=== PATIENT | female | born 1990 | race Caucasian/White ===

== ENCOUNTER 2024-09-07 10:25 | Emergency (ER) | payer MEDICAID, SELFPAY ==
--- NOTE | ~2024-09-07 | US_ITS ---
EXAMINATION: US LOWER EXTREMITY VEINS BILATERAL HISTORY: LE edema, pitting COMPARISON: There are no prior studies for comparison. TECHNIQUE: Duplex and color Doppler sonographic examination of the deep venous system of the bilateral lower extremities was performed. FINDINGS: The right common femoral, superficial femoral, and popliteal veins are patent demonstrating normal compressibility, spontaneous flow, and augmentation. There is a normal color and spectral Doppler waveform appearance of the visualized deep venous system above the knee. The posterior tibial and peroneal veins are patent. The left common femoral, superficial femoral, and popliteal veins are patent demonstrating normal compressibility, spontaneous flow, and augmentation. There is a normal color and spectral Doppler waveform appearance of the visualized deep venous system above the knee. The posterior tibial and peroneal veins are patent. US/US venous duplex LE BI IMPRESSION: No evidence of acute DVT in the bilateral lower extremities. Electronically signed by: Leonides Villa MD 09/07/2024 01:15 PM EDT
--- NOTE | ~2024-09-07 | XR_ITS ---
EXAMINATION: XR CHEST CLINICAL INFORMATION: exertional dyspnea COMPARISON: None available. TECHNIQUE: 2 views of the chest were obtained. FINDINGS: Faint wedge-shaped opacities in the right middle lung lobe and lingula best seen on the lateral projection. No gross pleural effusion or pneumothorax. Cardiomediastinal silhouette size is normal. S-shaped curvature of the thoracic spine. XR/XR chest 2V IMPRESSION: Questionable airspace disease in the right middle lung lobe and lingula versus summation of breast tissue Electronically signed by: Deo Carpenter MD 09/07/2024 12:12 PM EDT
[2024-09-07 10:26] VITALS: BP 123/69; PULSE 89; RESP 18; TEMP 36.3; O2SAT 94; BMI 34.3
--- NOTE | 2024-09-07 10:29 | ED.GENADULT ---
HPI - General Adult General Chief complaint: General Medical Stated complaint: pain in both legs Time Seen by Provider: 09/07/24 11:14 Source: patient, RN notes reviewed and old records reviewed Mode of arrival: ambulatory History of Present Illness ED Provider: Katrina Gary PA-C HPI narrative: 34-year-old female with a past medical history substance abuse currently on Methadone, presenting to the ED complaining of bilateral LE edema and discomfort x few weeks. Also states her psychiatrist Center to ED for EKG however she is unclear why. Admits she recently started methadone about 2 weeks ago, however states leg swelling started prior to methadone initiation. Reports associated calf shocking feeling and some exertional dyspnea. Denies chest pain, recent travel, long car rides or plane rides, history of clots, oral OCPs. Does smoke cigarettes. Related Data Previous Rx's ?Medication ?Instructions ?Recorded doxycycline hyclate 100 mg tablet 100 mg PO BID 7 days #14 tabs 09/07/24 furosemide 20 mg tablet (Lasix) 20 mg PO DAILY 5 days #5 tabs 09/07/24 Allergies Allergy/AdvReac Type Severity Reaction Status Date / Time No Known Allergies Allergy Verified 09/07/24 10:30 Review of Systems Review of Systems: Yes all other systems are reviewed and are negative Constitutional: Constitutional: Reports as per [facility] Past Medical History Attestation statement: The following information was validated with the patient. Source: old records reviewed Social History Social History Advance Directives: No Advance Directives Information Provided: Yes Do you have a plan to hurt others: No Plan Physical Exam ED Vital Signs: Vital Signs - 24 hr 09/07/24 10:26 Temperature 97.3 F Pulse Rate 89 Respiratory Rate 18 Blood Pressure 123/69 Pulse Oximetry 94 Oxygen Delivery Method Room Air BMI result Body Mass Index 34.3 Const Other: Appears under the influence General: cooperative and no acute distress Orientation/consciousness: patient oriented x3 HENMT Head: Yes normal to inspection and Yes atraumatic Ears: hearing grossly normal bilaterally General nose exam: Normal external nose present Face and sinus: Yes normal facial exam Eyes General: appearance normal, both eyes and all related structures EOM: EOMs intact bilaterally Neck Neck: Yes normal visual inspection and Yes no meningeal signs Resp Effort & Inspection: normal respiratory effort and no respiratory distress Auscultation: clear to auscultation bilaterally, no crackles and no wheezes Cardio Rate: regular rate Heart sounds: S1 normal heart sound present and S2 normal heart sound present Peripheral pulses: Peripheral pulses 2+ throughout Skin Rashes: no rashes Wounds: no wounds Neuro General: patient oriented x3, tone normal and no meningeal signs Cranial nerves: Yes CN's II-XII intact bilaterally Gait exam (Neuro): Normal gait present Extrem Other: 2+ bilateral LE pitting edema. Mild calf tenderness. Neurovascularly intact distally. No crepitus. Course Course Course Narrative: This is a rapid medical exam performed by Gagan Faye NP: Additional HPI, ROS, PE not included below will be deferred to primary provider. 09/07/24 10:30 Patient is a 34-year-old female presenting with complaint of bilateral lower extremity swelling and shock-like pain for the past week. States her psychiatrist referred her for an EKG but she does not know why and did not have it done yet. Plan: EKG, labs -1157-- labs reassuring. D-dimer negative, DVT/ PE less likely - QT prolonged, QTc 517 > will consult addiction medicine, Amber Reed > recommended repeating EKG later today or tomorrow. >> Repeat EKG with prolonged QT, but slightly improved from prior, QTc 500 > EKG sent to patient's methadone clinic ([address]) by Addiction Medicine so they are aware & can monitor. - UA with leuk esterase and wbc's /blood however contaminated > will wait on initiating antibiotics until culture results XR chest 2V IMPRESSION: Questionable airspace disease in the right middle lung lobe and lingula versus summation of breast tissue > will treat patient empirically with doxycycline due to questionable UTI / pneumonia. Avoiding azithromycin due to prolonged QT US venous duplex LE BI IMPRESSION: No evidence of acute DVT in the bilateral lower extremities. Discussed with patient need of compression stockings and leg elevation. Discussed importance of QTC monitoring. - upon attempted discharge patient states she was being treated for Trichomonas however stopped antibiotics fdc through and then continued them and would like to be re-tested. Will self swab. Will wait on culture prior to treating as she partially completed treatment Results discussed with patient including worrisome signs and symptoms and strict return precautions, and when to return to the emergency department. They verbalized understanding and feel safe for discharge at this time. Medical Decision Making Medical Decision Making [facility] Narrative: 34-year-old female with a past medical history substance abuse currently on Methadone, presenting to the ED complaining of bilateral LE edema and discomfort x few weeks. Reports associated calf shocking feeling and some exertional dyspnea. On exam vital signs stable, NAD, nontoxic appearing, 2+ bilateral LE pitting edema noted with bilateral calf tenderness. Lungs CTA. Concern for CHF vs dependent edema vs ? DVT/PE. Rule out prolonged QT secondary to methadone use. Lower suspicion for ACS Plan: EKG, labs, venous duplex ultrasound, CXR Please refer to course for remaining clinical decision making, interpretation of labs/imaging results, and discussions with consultants and/or family members. Differential Diagnosis Differential Diagnoses: The differential diagnosis associated with the presentation includes As above Admission/Observation Consideration of admission/observation: Escalation of care including admission/observation considered Consult Healthcare Provider Management of the patient was discussed with: Loom Changeover Operator (Amber Reed) Lab Data [facility] Lab Attestation statement: I reviewed the patient's lab results. 09/07/24 10:49 09/07/24 10:48 Labs: Lab Results 09/07/24 09/07/24 09/07/24 Range/Units 10:48 10:49 12:09 WBC 6.6 (4.8-10.8) X10*3/uL RBC 3.90 L (4.20-5.50) X10*6/uL Hgb 10.9 L (12.0-16.0) g/dl Hct 33.1 L (37.0-47.0) % MCV 84.9 (80.0-98.0) fL MCH 27.9 (27.0-33.0) pg MCHC 32.9 (31.0-35.0) g/dl RDW 13.7 (11.0-16.0) % Plt Count 262 (160-400) X10*3/uL MPV 9.1 L (9.4-12.3) fL Immature Gran % (Auto) 0.3 (0.0-0.4) % Neut % (Auto) 61.9 (45-73) % Lymph % (Auto) 25.0 (20-40) % Mitchell % (Auto) 10.9 (2-11) % Eos % (Auto) 1.4 (0-4) % Baso % (Auto) 0.5 (0-2) % Lymph # (Auto) 1.7 (1.2-4.9) X10*3/uL Mitchell # (Auto) 0.7 (0.1-1.2) X10*3/uL Eos # (Auto) 0.1 (0.0-0.4) X10*3/uL Baso # (Auto) 0.0 (0.0-0.2) X10*3/uL Abs Immat Gran (auto) 0.02 (0.00-0.03) X10*3/uL Absolute Neuts (auto) 4.1 (2.0-8.3) x10*3/uL Absolute Nucleated RBC 0.000 (0.0-0.012) X10*3/uL Nucleated RBC % (auto) 0.0 (0.0-0.2) /100WBC D-Dimer High Sensitivty NG/ML Sodium 140 (135-145) mmol/L Potassium 3.9 (3.3-5.1) mmol/L Chloride 108 (96-108) mmol/L Carbon Dioxide 27 (22-29) mmol/L Anion Gap 9 L (12-20) BUN 3 L (9-16) mg/dL Creatinine 0.57 (0.5-1.4) mg/dL Estim Creat Clear Calc 139.3 Estimated GFR > 60 Random Glucose 97 (60-115) mg/dL Calcium 8.6 (8.4-10.2) mg/dL Magnesium 1.9 (1.6-2.6) mg/dL Total Bilirubin 0.3 (0.0-1.0) mg/dL AST 39 H (5-31) U/L ALT 26 (0-31) U/L Alkaline Phosphatase 60 (39-117) U/L Troponin I High Sens < 2.7 (<3.5-17.0) ng/L B-Natriuretic Peptide 38 (<100) pg/mL Total Protein 6.4 L (6.5-8.0) g/dL Albumin 3.6 (3.5-5.0) g/dL Urine Color Yellow Urine Appearance Clear Urine pH 8.0 (5.0-9.0) Ur Specific [place] 1.010 (1.005-1.025) Urine Protein Negative (Neg-Trace) mg/dL Urine Glucose (UA) Negative (Negative) mg/dL Urine Ketones Negative (Negative) mg/dL Urine Blood Large (3+) H (Negative) Urine Nitrite Negative (Negative) Ur Leukocyte Esterase Moderate (2+) H (Negative) Urine RBC 0-2 (0-2) /HPF Urine WBC 6-10 H (0-5) /HPF Ur Squamous Epith Cells 6-10 (0-2) /HPF Urine Bacteria 1+ (None Seen) Hyaline Casts 0-2 (0-2) /LPF 09/07/24 Range/Units 12:15 WBC (4.8-10.8) X10*3/uL RBC (4.20-5.50) X10*6/uL Hgb (12.0-16.0) g/dl Hct (37.0-47.0) % MCV (80.0-98.0) fL MCH (27.0-33.0) pg MCHC (31.0-35.0) g/dl RDW (11.0-16.0) % Plt Count (160-400) X10*3/uL MPV (9.4-12.3) fL Immature Gran % (Auto) (0.0-0.4) % Neut % (Auto) (45-73) % Lymph % (Auto) (20-40) % Mitchell % (Auto) (2-11) % Eos % (Auto) (0-4) % Baso % (Auto) (0-2) % Lymph # (Auto) (1.2-4.9) X10*3/uL Mitchell # (Auto) (0.1-1.2) X10*3/uL Eos # (Auto) (0.0-0.4) X10*3/uL Baso # (Auto) (0.0-0.2) X10*3/uL Abs Immat Gran (auto) (0.00-0.03) X10*3/uL Absolute Neuts (auto) (2.0-8.3) x10*3/uL Absolute Nucleated RBC (0.0-0.012) X10*3/uL Nucleated RBC % (auto) (0.0-0.2) /100WBC D-Dimer High Sensitivty 181 NG/ML Sodium (135-145) mmol/L Potassium (3.3-5.1) mmol/L Chloride (96-108) mmol/L Carbon Dioxide (22-29) mmol/L Anion Gap (12-20) BUN (9-16) mg/dL Creatinine (0.5-1.4) mg/dL Estim Creat Clear Calc Estimated GFR Random Glucose (60-115) mg/dL Calcium (8.4-10.2) mg/dL Magnesium (1.6-2.6) mg/dL Total Bilirubin (0.0-1.0) mg/dL AST (5-31) U/L ALT (0-31) U/L Alkaline Phosphatase (39-117) U/L Troponin I High Sens (<3.5-17.0) ng/L B-Natriuretic Peptide (<100) pg/mL Total Protein (6.5-8.0) g/dL Albumin (3.5-5.0) g/dL Urine Color Urine Appearance Urine pH (5.0-9.0) Ur Specific [place] (1.005-1.025) Urine Protein (Neg-Trace) mg/dL Urine Glucose (UA) (Negative) mg/dL Urine Ketones (Negative) mg/dL Urine Blood (Negative) Urine Nitrite (Negative) Ur Leukocyte Esterase (Negative) Urine RBC (0-2) /HPF Urine WBC (0-5) /HPF Ur Squamous Epith Cells (0-2) /HPF Urine Bacteria (None Seen) Hyaline Casts (0-2) /LPF Independent Interpretation I performed an independent interpretation of an: EKG ( my interpretation EKG normal sinus rhythm rate of 83. [place] interval 172. Prolonged QT. QTc 517. No previous to compare. No STEMI) and Plain X-Ray Interpretation: EKG #2 repeat EKG normal sinus rhythm rate of 73. Prolonged QT. QTC 500, slightly improved from prior. No significant change was found. Radiology Impression Discussion of test interpretation with radiology: I have reviewed the radiologist's reading. External Record Review External record reviewed: Inpatient record, Office record, Outpatient record, Prior outpatient labs, Prior outpatient radiology, Primary care record and Outside ED record Tests considered The following testing was considered but not selected: As above Chronic Conditions Patient?s care impacted by: Other Social Determinants Patient?s care significantly limited by Social Determinants of Health including: Inadequate housing, Low income, Alcoholism and drug addiction in family, Problems related to primary support group and Other Social Determinant of Health Discharge Plan Discharge Clinical Impression: Prolonged QT interval, Pedal edema Patient Disposition: Home, Self-Care Instructions: Methadone (By mouth), Edema (ED) Additional Instructions: Your blood work is reassuring Your ultrasound was negative for blood clot Your x-ray and urine are questionable for infection and pneumonia. Doxycycline as an antibiotic please take as prescribed Lasix is a water pill/ diuretic this will help with the swelling in your legs You need to wear compression stockings and elevate your legs Follow up with her primary care doctor Your QTc was prolonged gated today in the emergency department likely a side effect from your methadone, your methadone clinic is aware, this needs to be monitored very closely Prescriptions: New doxycycline hyclate 100 mg tablet 100 mg PO BID 7 Days Qty: 14 0RF furosemide [Lasix] 20 mg tablet 20 mg PO DAILY 5 Days Qty: 5 0RF Referrals: [facility] [Provider Group] [facility] Primary Care, Dagmar [Provider Group] [facility] Primary Care,Amanda [Provider Group] [facility] Walk In Care [Provider Group] [facility] [Outside] Stand Alone Forms: Work/School Release Print Language: Swazi
--- NOTE | 2024-09-07 10:31 | ECG_ITS ---
Test Reason : PAIN W/ BREATHING Blood Pressure : */* mmHG Vent. Rate : 83 BPM Atrial Rate : 83 BPM P-R Int : 172 ms QRS Dur : 92 ms QT Int : 440 ms P-R-T Axes : 55 53 59 degrees QTcB Int : 517 ms Normal sinus rhythm Prolonged QT Abnormal ECG No previous ECGs available Referred By: Mercy Faye Electronically Signed By: STEPHANIE UREÑA
[2024-09-07 10:53] LABS: MANUAL DIFF FLAG NO
[2024-09-07 10:57] LABS: Basophils Percent Auto 0.5 % (0-2); Eosinophils Absolute Auto 0.1 X10*3/uL (0.0-0.4); Eosinophils Percent Auto 1.4 % (0-4); Hematocrit 33.1 % (37.0-47.0); Hemoglobin 10.9 g/dl (12.0-16.0); Imm Gran Abs Auto 0.02 X10*3/uL (0.00-0.03); Imm Gran Pct Auto 0.3 % (0.0-0.4); Lymphocytes Absolute Auto 1.7 X10*3/uL (1.2-4.9); Mean Corpuscular HGB Conc 32.9 g/dl (31.0-35.0); Mean Corpuscular Hemoglobin 27.9 pg (27.0-33.0); Mean Corpuscular Volume 84.9 fL (80.0-98.0); Mean Platelet Volume 9.1 fL (9.4-12.3); Monocytes Absolute Auto 0.7 X10*3/uL (0.1-1.2); Monocytes Percent Auto 10.9 % (2-11); Neutrophils Absolute Auto 4.1 x10*3/uL (2.0-8.3); Neutrophils Percent Auto 61.9 % (45-73); Platelet Count 262 X10*3/uL (160-400); Red Cell Distribution Width 13.7 % (11.0-16.0); White Blood Count 6.6 X10*3/uL (4.8-10.8)
[2024-09-07 11:21] LABS: Alanine Aminotransferase 26 U/L (0-31); Albumin Level 3.6 g/dL (3.5-5.0); Alkaline Phosphatase 60 U/L (39-117); Anion Gap 9 (12-20); Aspartate Amino Transferase 39 U/L (5-31); Bilirubin Total 0.3 mg/dL (0.0-1.0); Blood Urea Nitrogen 3 mg/dL (9-16); Calcium 8.6 mg/dL (8.4-10.2); Carbon Dioxide 27 mmol/L (22-29); Chloride 108 mmol/L (96-108); Creatinine Clr Calc Pharmacy 139.3; Estimated Glomerular Filt Rate > 60; Glucose Random 97 mg/dL (60-115); Potassium 3.9 mmol/L (3.3-5.1); Sodium 140 mmol/L (135-145); Total Protein 6.4 g/dL (6.5-8.0)
[2024-09-07 12:04] LABS: Magnesium 1.9 mg/dL (1.6-2.6)
[2024-09-07 12:12] LABS: Troponin-I High Sensitivity < 2.7 ng/L (<3.5-17.0)
[2024-09-07 12:16] LABS: Appearance Urine Clear; Color Urine Yellow; Glucose Urine UA Negative (Negative); Leukocyte Esterase Urine Moderate (2+) (Negative); Nitrite Urine Negative (Negative); UMIC TRIGGER UACC YES; Urine Blood Large (3+) (Negative); Urine Ketones Negative (Negative); Urine Protein Negative (Neg-Trace)
[2024-09-07 12:17] LABS: B Type Natriuretic Peptide 38 pg/mL (<100)
[2024-09-07 12:24] LABS: Bacteria Urine 1+ (None Seen); Hyaline Casts Urine 0-2 /LPF (0-2); RBC Urine 0-2 /HPF (0-2); UACC Culture Trigger YES
[2024-09-07 12:29] LABS: D Dimer High Sensitivity 181 NG/ML
--- OUTSIDE RECORDS SUMMARY | 2024-09-07 12:29 | XMS_ITS | Clinical Summary ---
Author Organization [facility] Address [address] [place] [address] Care Team Providers Care Street Cleaner Name Role Phone Unavailable Primary Care Provider Unavailabl e Source Comments PLEASE NOTE, if this patient is a minor, it may be UNLAWFUL to discuss sensitive information that is contained in these records (such as FAMILY PLANNING, MENTAL HEALTH or SUBSTANCE ABUSE) with the minor patient's parent or other person without the patient's specific authorization.[facility] Medications hydrOXYzine HCL (ATARAX) 50 mg tabletIndications:B ipolar 1 disorder ([facility]) Take 1 Tablet by mouth 3 (three) times daily as needed for anxiety for up to 30 days 90 Tablet 5 Active FLUoxetine 60 mg tabIndications:Bipo lar 1 disorder (HCC-CMS) Take 1 Tablet by mouth daily. for 30 days 30 Tablet 5 Active OLANZapine (ZYPREXA) 10 mg disintegrating tabletIndications:B ipolar 1 disorder (HCC-CMS) Take 1 Tablet by mouth nightly at bedtime for 30 days 30 Tablet 5 Active Active Problems Problem Noted Date Diagnosed Date Bipolar 1 disorder (HCC-CMS) 07/21/2024 Overview (07/21/2024): Not currently followed by psych. Hoping to go back to [facility] in a few weeks. Assessment & Plan (07/21/2024 4:21 PM EST): -renewed scripts -offered in house psych, pt declined Depression 07/21/2024 Substance use disorder 07/21/2024 Overview (07/21/2024): Moved from for SUP. Asked to leave. Hoping she can go back soon. Not currently using. Assessment & Plan (07/21/2024 4:25 PM EST): Awaiting Trey oconnell. -informed pt could be connected to other resources, verbilizes understanding and will reach out if interested. -discuss in more detail at next visit Unprotected sexual intercourse 07/21/2024 Overview (07/21/2024): 2 days ago. No RF sx Assessment & Plan (07/21/2024 4:24 PM EST): History reassuring -sureswab sent -condoms provided -RTC in 2-4 weeks for blood testing for HIV/syphillis/hep immunity testing Elevated blood pressure read ing in office without diagnosis of hypertension 07/21/2024 Assessment & Plan (07/21/2024 4:28 PM EST): No PMH HTN. -RTC for recheck in 1 week Encounters Date Type Department Care Team Description 07/25/2024 8:30 AM EST Case Management Visit [facility] @ [address] [phone] Elisa Romero Classified Ad Taker Complex care coordination (Primary Dx) 07/21/2024 2:30 PM EST Office Visit [address] [phone] Telma Flores NP Depression, unspecified depression type (Primary Dx); Bipolar 1 disorder ([facility]); Substance use disorder; Unprotected sexual intercourse; Elevated blood pressure reading in office without diagnosis of hypertension from Last 3 Months Social History Tobacco Use Types Packs/Day Years Used Date Smoking Tobacco: Never Assessed Comments Unknown Sex and Gender Information Value Date Recorded Sex Assigned at Not on file Legal Sex Female 10:46 AM PST Gender Identity Not on file Sexual Orientation Not on file Last Filed Vital Signs Vital Sign Reading Time Taken Comments Blood Pressure 147/88 07/21/2024 4:26 PM EST Pulse 101 07/21/2024 4:26 PM EST Temperature - - Respiratory Rate 18 07/21/2024 4:26 PM EST Oxygen Saturation 98% 07/21/2024 4:26 PM EST Inhaled Oxygen Concentration - - Weight - - Height - - Body Mass Index - - Plan of Treatment Health Maintenance Due Date Last Done Comments Anxiety Screening 1989 Depression Monitoring 1989 Diabetes Screening 1989 HPV Screening 1989 Hepatitis C Screening 1989 LTBI Screening (#1) 1989 Pap + HPV 1989 STI Counseling 1989 Tobacco Screening 1989 HIV Screening 2004 Relationship Safety Screening/Counseling 2004 Imm-DTaP/Tdap/Td (1 - Tdap) 2008 Imm-Hepatitis A (1 of 2 - Risk 2-dose series) 07/23/19 09 Imm-Hepatitis B (1 of 3 - 19+ 3-dose series) 9 Cervical Cancer Screening 2010 Pap Smear 2010 [id number] ( season) 2024 Imm-Influenza (#1) 2024 Alcohol and Drug Screen 06/07/2024 Hypertension Screening (#1) 07/21/2025 Cervical Ablation/Cold-Knife Conization Discontinued Cervical Cryotherapy Discontinued Colposcopy Discontinued Endometrial Biopsy Discontinued Excision/Leep Discontinued HPV Genotyping Discontinued Vaginal Pap Discontinued Vulvoscopy Discontinued Procedures Procedure Name Priority Date/Time Associated Diagnosis Comments SURESWAB ADVANCED VAGINITIS PLUS, TMA Routine 07/21/2024 3:57 PM EST Unprotected sexual intercourse from Last 3 Months Results * (ABNORMAL) SURESWAB ADVANCED VAGINITIS PLUS, TMA (07/21/2024 3:57 PM EST) CHLAMYDIA TRACHOMATIS RNA, TMA NOT DETECTED NOT DETECTED [facility] NEISSERIA GONORRHOEAE RNA, TMA NOT DETECTED NOT DETECTED [facility] COMMENT [facility] SURESWAB(R) ADV BACTERIAL VAGINOSIS (BV), TMA POSITIVE(A) NEGATIVE [facility] BEVERLY SPECIES NOT DETECTED NOT DETECTED [facility] [place] GLABRATA NOT DETECTED NOT DETECTED [facility] COMMENT [facility] TRICHOMONAS VAGINALIS (TV), TMA DETECTED(A) NOT DETECTED [facility] Swab Vaginal structure / Unknown 07/21/2024 3:57 PM EST 07/21/2024 3:58 PM EST Narrative [facility] - 07/22/2024 3:26 PM EST Beverly species C. albicans, C. tropicalis, C. parapsilosis, and/or C. dubliniensis can be detected, but not differentiated, in the Beverly spp. result. For additional information, please refer to https://education.Insurance Noodle/faq/JAZ620 (This link is being provided for information/ educational purposes only.) us Telam Flores NP LAB - NO BLOOD D RAW Final Result [facility] [address] [address], [facility] [address] [place] [address] from Last 3 Months Insurance [facility] Member Subscriber Plan / Payer ( fective 2024-Present) Name:Adore Messer Relation to Subscriber:Self Name:Adore Messer Payer ID:[id number] Group ID:Not on file Type:Medicaid Address: [address] [place] [address] [facility] MED[facility]ID
--- OUTSIDE RECORDS SUMMARY | 2024-09-07 12:29 | XMS_ITS | Encounter Summary ---
Author Organization [employer] Address [address] [place] [address] Care Team Providers Care Batter Scaler Name Role Phone Physician, Pcp Unknown Primary Care Provider Miranda vailable Encounter Details Date Type Department Care Team (Late st Contact Info) Description 08/29/[address] [facility] - Main Lab [address] [facility] [place] [address] Telma Carey MD [address] [place] [address] Opioid dependence, uncomplicated (CMS/HCC) Social History Tobacco Use Types Packs/Day Years Used Date Smoking Tobacco: Never Assessed Comments Unknown Sex and Gender Information Value Date Recorded Sex Assigned at Not on file Legal Sex Female 2:56 PM EDT Gender Identity Not on file Sexual Orientation Not on file documented as of this encounter Plan of Treatment Not on file documented as of this encounter Procedures Procedure Name Priority Date/Time Associated Diagnosis Comments HEPATITIS C ANTIBODY Routine 08/29/2024 9:45 AM EDT Opioid dependence, uncomplicated (CMS/HCC) HIV 1, 2 ANTIBODY, P24 ANTIGEN WITH REFLEX TO DIFFERENTIATION Routine 08/29/2024 9:45 AM EDT Opioid dependence, uncomplicated (CMS/HCC) WHITE - NO ADDITIVE Routine 08/29/2024 9 :45 AM EDT Opioid dependence, uncomplicated (CMS/HCC) HEPATITIS B SURFACE ANTIGEN WITH CONFIRMATION Routine 08/29/2024 9:45 AM EDT Opioid dependence, uncomplicated (CMS/HCC) AST, ALT, BILIRUBIN ELR STATE REPORTABLES Routine 08/29/2024 9:45 AM EDT Opioid dependence, uncomplicated (CMS/HCC) TREPONEMA PALLIDUM ANTIBODY WITH REFLEX TO RPR AND PARTICLE AGGLUTINATION Routine 08/29/2024 9:45 AM EDT Opioid dependence, uncomplicated (CMS/HCC) HEPATITIS A ANTIBODY TOTAL WITH REFLEX IGM Routine 08/29/2024 9:45 AM EDT Opioid dependence, uncomplicated (CMS/HCC) RED - PLAIN Routine 08/29/2024 9:45 AM EDT Opioid dependence, uncomplicated (CMS/HCC) HEPATITIS A ANTIBODY IGM Routine 08/29/2024 9:45 AM EDT Opioid dependence, uncomplicated (CMS/HCC) HEPATITIS B CORE ANTIBODY, TOTAL Routine 08/29/2024 9:45 AM EDT Opioid dependence, uncomplicated (CMS/HCC) HEPATITIS B SURFACE ANTIBODY Routine 08/29/2024 9:45 AM EDT Opioid dependence, uncomplicated (CMS/HCC) COMPLETE BLOOD COUNT Routine 08/29/2024 9:45 AM EDT Opioid dependence, uncomplicated (CMS/HCC) COMPREHENSIVE METABOLIC PANEL Routine 08/29/2024 9:45 AM EDT Opioid dependence, uncomplicated (CMS/HCC) documented in this encounter Results * AST, ALT, Bilirubin ELR state reportables (08/29/2024 9:45 AM EDT) ALT (SGPT) 24 10 - 60 unit/L LAB CHEMISTRY METHOD 08/29/2024 7:03 PM EDT [facility] AST (SGOT) 24 10 - 42 unit/L LAB CHEMISTRY METHOD 08/29/2024 7:03 PM EDT [facility] Total Bilirubin 0.4 0.0 - 1.4 mg/dL LAB CHEMISTRY METHOD 08/29/2024 7:03 PM EDT [facility] Platelets 297 K/mcL LAB HEMETOLOGY METHOD 08/29/2024 7:03 PM EDT [facility] Blood Venous blood specimen / Unknown 08/29/2024 9:45 AM EDT 08/29/2024 3:21 PM EDT Telma Carey MD LAB BLOOD ORDERABLES Fi nal Result Performing Organization Address [facility] de Phone Number [facility] [address] [place] [address], [place] [phone] * Hepatitis A antibody IgM (08/29/2024 9:45 AM EDT) Hepatitis A Antibody IgM Negative Negative LAB CHEMISTRY METHOD 08/29/2024 7:20 PM EDT [facility] Blood Venous blood specimen / Unknown 08/29/2024 9:45 AM EDT 08/29/2024 3:21 PM EDT Narrative [facility] - 08/29/2024 7:20 PM EDT Over the counter supplements containing high doses of biotin may interfere with this assay. ??If interference is suspected, patients shoud be retested after refraining from biotin supplements for 72 hours. Telma Carey MD LAB BLOOD ORDERABLES Fi nal Result Performing Organization Address [facility] de Phone Number [facility] [address] [place] [address], * Red tube (08/29/2024 9:45 AM EDT) Extra Tube Hold for add-ons. 08/29/2024 5:01 PM EDT [facility] Comment:Auto resulted. Blood Venous blood specimen / Unknown 08/29/2024 9:45 AM EDT 08/29/2024 3:26 PM EDT Telma Carey MD LAB BLOOD ORDERABLES Fi nal Result Performing Organization Address [facility] Co de Phone Number [facility] [address] [place] [address], * Hepatitis B core antibody, total (08/29/2024 9:45 AM EDT) [facility] Hep B Core Total Ab Negative Negative LAB CHEMISTRY METHOD 08/29/2024 6:05 PM EDT [facility] Blood Venous blood specimen / Unknown 08/29/2024 9:45 AM EDT 08/29/2024 3:21 PM EDT Telma Carey MD LAB BLOOD ORDERABLES Fi nal Result Performing Organization Address [facility] Co de Phone Number [facility] [address] [place] [address], * White no additive tube (08/29/2024 9:45 AM EDT) [facility] Extra Tube Hold for add-ons. 08/29/2024 5:01 PM EDT [facility] Comment:Auto resulted. Urine Urine specimen obtained by clean catch procedure / Unknown 08/29/2024 9:45 AM EDT 08/29/2024 3:21 PM EDT Telma Carey MD LAB MICROBIOLOGY - GENE RAL ORDERABLES Final Result Performing Organization Address [facility] Co de Phone Number [facility] [address] [place] [address], [place] [phone] * (ABNORMAL) Hepatitis A antibody total with reflex IgM (08/29/2024 9:45 AM EDT) [facility] Hep A Total Ab Positive( A) Negative LAB CHEMISTRY METHOD 08/29/2024 6:04 PM EDT [facility] Blood Venous blood specimen / Unknown 08/29/2024 9:45 AM EDT 08/29/2024 3:21 PM EDT Narrative [facility] - 08/29/2024 6:04 PM EDT Over the counter supplements containing high doses of biotin may interfere with this assay. ??If interference is suspected, patients shoud be retested after refraining from biotin supplements for 72 hours. Telma Carey MD LAB BLOOD ORDERABLES Fi nal Result Performing Organization Address [facility] de Phone Number [facility] [address] [place] [address], [place] [phone] * (ABNORMAL) Hepatitis C antibody (08/29/2024 9:45 AM EDT) Pathologist [facility] Hepatitis C Antibody Positive (A) Negative LAB CHEMISTRY METHOD 08/29/2024 6:04 PM EDT [facility] Comment:If confirmation of t his positive HCV Ab screening test is needed, please redraw and order HCV Viral Load. Note--> This test may not be added on due to different specimen requirements. Blood Venous blood specimen / Unknown 08/29/2024 9:45 AM EDT 08/29/2024 3:21 PM EDT Telma Carey MD LAB BLOOD ORDERABLES Fi nal Result Performing Organization Address [facility] Co de Phone Number [facility] [address] [place] [address], [place] [phone] * (ABNORMAL) Hepatitis B surface antibody (08/29/2024 9:45 AM EDT) Pathologist [facility] Hepatitis B Surface Ab Positive (A) Negative LAB CHEMISTRY METHOD 08/29/2024 5:26 PM EDT [facility] Hepatitis B Surface Ab Quantitative >1,000.0 mIU/mL LAB CHEMISTRY METHOD 08/29/2024 5:26 PM EDT [facility] Blood Venous blood specimen / Unknown 08/29/2024 9:45 AM EDT 08/29/2024 3:[address] [facility] - 08/29/2024 5:26 PM EDT >=10 mIU/mL is considered to be consistent with immunity. Telma Carey MD LAB BLOOD ORDERABLES Fi nal Result Performing Organization Address [facility] Co de Phone Number [facility] [address] [place] [address], * Hepatitis B surface antigen with reflex to confirmation (08/29/2024 9:45 AM EDT) Pathologist [facility] Hepatitis B Surface Ag Negative Negative LAB CHEMISTRY METHOD 08/29/2024 5:36 PM EDT [facility] Blood Venous blood specimen / Unknown 08/29/2024 9:45 AM EDT 08/29/2024 3:[address] [facility] - 08/29/2024 5:36 PM EDT Over the counter supplements containing high doses of biotin may interfere with this assay. ??If interference is suspected, patients shoud be retested after refraining from biotin supplements for 72 hours. Telma Carey MD LAB BLOOD ORDERABLES Fi nal Result Performing Organization Address [facility]/ZIP Co de Phone Number [facility] [address] [place] [address], [place] [phone] * HIV 1,2 antibody, p24 antigen with reflex to differentiation (08/29/2024 9:45 AM EDT) Pathologist [facility] HIV Combo AB/AG Negative Negative LAB CHEMISTRY METHOD 08/29/2024 6:05 PM EDT [facility] Blood Venous blood specimen / Unknown 08/29/2024 9:45 AM EDT 08/29/2024 3:21 PM EDT Narrative [facility] - 08/29/2024 6:05 PM EDT This assay is a 4th generation assay allowing for earlier detection of HIV infection by detecting the presence of the HIV-1 p24 antigen as well as the traditional antibodies to HIV type 1 (including group O) and type 2. ??Use of a 4th generation assay is the current CDC recommendation for HIV screening. Telma Carey MD LAB BLOOD ORDERABLES Fi nal Result Performing Organization Address [facility] Co de Phone Number [facility] [address] [place] [address], [place] [phone] * Treponema pallidum antibody with reflex to RPR and particle agglutination (08/29/2024 9:45 AM EDT) Pathologist [facility] T. Pallidum Antibodies Negative Negative LAB CHEMISTRY METHOD 08/29/2024 8:07 PM EDT [facility] Blood Venous blood specimen / Unknown 08/29/2024 9:45 AM EDT 08/29/2024 3:21 PM EDT Telma Carey MD LAB BLOOD ORDERABLES Fi nal Result Performing Organization Address [facility] Co de Phone Number [facility] [address] [place] [address], [place] [phone] * (ABNORMAL) Comprehensive metabolic panel (08/29/2024 9:45 AM EDT) Sodium 138 133 - 145 mmol/L LAB CHEMISTRY METHOD 08/29/2024 4:22 PM EDT [facility] Potassium 4.2 3.5 - 5.5 mmol/L LAB CHEMISTRY METHOD 08/29/2024 4:22 PM EDT [facility] Chloride 104 96 - 110 mmol/L LAB CHEMISTRY METHOD 08/29/2024 4:22 PM EDT [facility] CO2 24 21 - 32 mmol/L LAB CHEMISTRY METHOD 08/29/2024 4:[address] [facility] Anion Gap 10 3 - 11 LAB CHEMISTRY METHOD 08/29/2024 4:[address] [facility] Glucose 117(H) 70 - 100 mg/dL LAB CHEMISTRY METHOD 08/29/2024 4:[address] [facility] BUN 7 5 - 25 mg/dL LAB CHEMISTRY METHOD 08/29/2024 4:[address] [facility] Creatinine 0.56 0.50 - 1.10 mg/dL LAB CHEMISTRY METHOD 08/29/2024 4:[address] [facility] eGFR 122 >=60 mL/min/1. 73m2 LAB CHEMISTRY METHOD 08/29/2024 4:[address] [facility] Comment:Calculation based on the??Chronic Kidney Disease Epidemiology Collaboration (CKD-EPI) equation refit??without adjustment for race. BUN/Creatinine Ratio 12.5 LAB CHEMISTRY METHOD 08/29/2024 4:[address] [facility] Calcium 9.0 8.5 - 10.5 mg/dL LAB CHEMISTRY METHOD 08/29/2024 4:[address] [facility] AST (SGOT) 24 10 - 42 unit/L LAB CHEMISTRY METHOD 08/29/2024 4:[address] [facility] ALT (SGPT) 24 10 - 60 unit/L LAB CHEMISTRY METHOD 08/29/2024 4:[address] [facility] Alkaline Phosphatase 84 42 - 121 unit/L LAB CHEMISTRY METHOD 08/29/2024 4:[address] [facility] Total Protein 6.8 6.0 - 8.0 g/dL LAB CHEMISTRY METHOD 08/29/2024 4:[address] [facility] Albumin 3.7 3.2 - 5.0 g/dL LAB CHEMISTRY METHOD 08/29/2024 4:[address] [facility] Total Bilirubin 0.4 0.0 - 1.4 mg/dL LAB CHEMISTRY METHOD 08/29/2024 4:22 PM EDT [facility] Blood Venous blood specimen / Unknown 08/29/2024 9:45 AM EDT 08/29/2024 3:21 PM EDT Telma Carey MD LAB BLOOD ORDERABLES Fi nal Result [facility] [address] [place] [address], [place] [phone] * Complete blood count (08/29/2024 9:45 AM EDT) WBC 8.2 4.8 - 10.8 K/mcL LAB HEMETOLOGY METHOD 08/29/2024 3:35 PM EDT [facility] RBC 4.10 3.80 - 4.80 M/mcL LAB HEMETOLOGY METHOD 08/29/2024 3:35 PM EDT [facility] Hemoglobin 11.7 11.5 - 16.0 g/dL LAB HEMETOLOGY METHOD 08/29/2024 3:35 PM EDT [facility] Hematocrit 35.3 35.0 - 47.0 % LAB HEMETOLOGY METHOD 08/29/2024 3:35 PM EDT [facility] MCV 85.3 79.0 - 98.0 FL LAB HEMETOLOGY METHOD 08/29/2024 3:35 PM EDT [facility] MCH 28.3 27.0 - 32.0 pcg LAB HEMETOLOGY METHOD 08/29/2024 3:35 PM EDT [facility] MCHC 33.1 32.0 - 37.0 g/dL LAB HEMETOLOGY METHOD 08/29/2024 3:35 PM EDT [facility] RDW 13.5 11.0 - 15.0 % LAB HEMETOLOGY METHOD 08/29/2024 3:35 PM EDT [facility] Platelets 297 130 - 400 K/mcL LAB HEMETOLOGY METHOD 08/29/2024 3:35 PM EDT [facility] MPV 10.8 7.0 - 11.0 FL LAB HEMETOLOGY METHOD 08/29/2024 3:35 PM EDT [facility] NRBC 0.0 <1.0 % LAB HEMETOLOGY METHOD 08/29/2024 3:35 PM EDT [facility] NRBC Absolute 0.00 <0.10 K/mcL LAB HEMETOLOGY METHOD 08/29/2024 3:35 PM EDT [facility] Blood Venous blood specimen / Unknown 08/29/2024 9:45 AM EDT 08/29/2024 3:21 PM EDT us Telma Carey MD LAB BLOOD ORDERABLES Fi nal Result [facility] [address] [place] [address], documented in this encounter Visit Diagnoses Diagnosis Opioid dependence, uncomplicated (CMS/HCC) documented in this encounter Care Teams Batter Scaler Relationship Specialty Start Date End Date Physician, Pcp Unknown PCP - General 08/30/24 documented as of this encounter
--- OUTSIDE RECORDS SUMMARY | 2024-09-07 12:29 | XMS_ITS | Encounter Summary ---
Author Organization [employer] Address [address] [place] [address] Care Team Providers Care Molder Punch Name Role Phone Physician, Pcp Unknown Primary Care Provider Miranda vailable Encounter Details Date Type Department Care Team (Late st Contact Info) Description 09/06/2024 Lab Requisition [facility] - Main Lab [address] [facility] [place] [address] Telma Carey MD [address] [place] [address] Opioid dependence, uncomplicated (CMS/HCC); Encounter for screening for infections with a predominantly sexual mode of transmission Social History Tobacco Use Types Packs/Day Years [...] Procedure Name Priority Date/Time Associated Diagnosis Comments SST - GOLD Routine 09/06/2024 7:30 AM EDT Opioid dependence, uncomplicated (CMS/HCC) Encounter for screening for infections with a predominantly sexual mode of transmission HEPATITIS C VIRUS QUANTITATIVE PCR Routine 09/06/2024 7:30 AM EDT Opioid dependence, uncomplicated (CMS/HCC) Encounter for screening for infections with a predominantly sexual mode of transmission LAVENDER - EDTA Routine 09/06/2024 7:30 AM EDT Opioid dependence, uncomplicated (CMS/HCC) Encounter for screening for infections with a predominantly sexual mode of transmission documented in this encounter Results * Lavender tube (09/06/2024 7:30 AM EDT) Extra Tube Hold for add-ons. 09/06/2024 4:02 PM EDT [facility] Comment:Auto resulted. Blood Venous blood specimen / Unknown 09/06/2024 7:30 AM EDT 09/06/2024 2:52 PM EDT Telma Carey MD LAB BLOOD ORDERABLES Fi nal Result Performing Organization Address City/[facility] Co de Phone Number [facility] [address] [place] [address], [place] [phone] * SST tube (09/06/2024 7:30 AM EDT) Pathologist [facility] Extra Tube Hold for add-ons. 09/06/2024 4:02 PM EDT [facility] Comment:Auto resulted. Blood Venous blood specimen / Unknown 09/06/2024 7:30 AM EDT 09/06/2024 2:52 PM EDT Telma Carey MD LAB BLOOD ORDERABLES Fi nal Result Performing Organization Address [facility] Co de Phone Number [facility] [address] [place] [address], [place] [phone] * Hepatitis C virus quantitative molecular study (09/06/2024 7:30 AM EDT) [facility] HCV Qual Interp Not Detected Not Detected LAB MOLECULAR DIAGNOSTICS METHOD 09/07/2024 10:58 AM EDT [facility] Comment:HCV RNA not detected , unable to report quantitative results. Blood Venous blood specimen / Unknown 09/06/2024 7:30 AM EDT 09/06/2024 2:52 PM EDT Telma Carey MD LAB BLOOD ORDERABLES Fi nal Result Performing Organization Address City/[facility]/ZIP Co de Phone Number [facility] [address] [place] [address], documented in this encounter Visit Diagnoses Diagnosis Opioid dependence, uncomplicated (CMS/HCC) Encounter for screening for infections with a predominantly sexual mode of transmission documented in this encounter Care Teams Molder Punch Relationship Specialty Start Date End Date Physician, Pcp Unknown PCP - General 08/30/24 documented as of this encounter
--- OUTSIDE RECORDS SUMMARY | 2024-09-07 12:29 | XMS_ITS | Clinical Summary ---
Author Organization [address] [facility] Address [address] [place] [address] Phone Care Team Providers Care Shredder Operator Name Role Phone Physician, Pcp Unknown Primary Care Provider Miranda vailable Encounters Date Type Department Care Team Description 09/06/2024 Lab Requisition [facility] [address] [place] [address] Telma Carey MD Opioid dependence, uncomplicated (CMS/HCC); Encounter for screening for infections with a predominantly sexual mode of transmission 08/29/2024 Lab Requisition [facility] [address] [place] [address] Telma Carey MD Opioid dependence, uncomplicated (CMS/HCC) from Last 3 Months Social History Tobacco Use Types Packs/Day Years Used Date Smoking Tobacco: Never Assessed Comments Unknown Sex and Gender Information Value Date Recorded Sex Assigned at Not on file Legal Sex Female 2:56 PM EDT Gender Identity Not on file Sexual Orientation Not on file Plan of Treatment Health Maintenance Due Date Last Done Comments DTaP,Tdap,and Td Vaccines (1 - Tdap) 2008 Hepatitis A Vaccines (1 of 2 - Risk 2-dose series) 2008 Hepatitis B Vaccines (1 of 3 - 19+ 3-dose series) 2008 Cervical Cancer Screening: P ap Smear 2010 COVID-19 Vaccine (2023-2 5 season) 2024 Depression Screening 08/30/2024 Social Influencers of Health Screening 08/30/2024 Influenza Vaccine (Season Ended) 2025 HIV Screening Completed 08/29/2024 Hepatitis C Screening Completed 09/06/2024 , 08/29/2024 HIB Vaccines Aged Out No longer eligi ble based on patient's age to complete this topic HPV Vaccines Aged Out No longer eligi ble based on patient's age to complete this topic IPV Vaccines Aged Out No longer eligi ble based on patient's age to complete this topic MMR Vaccines Aged Out No longer eligi ble based on patient's age to complete this topic Meningococcal ACWY Vaccine Aged Out N o longer eligible based on patient's age to complete this topic Meningococcal B Vacine Aged Out No lo nger eligible based on patient's age to complete this topic Pneumococcal Vaccine: Pediatrics (0 to 5 Years) and At-Risk Patients (6 to 64 Years) Aged Out No longer eligible b ased on patient's age to complete this topic RSV Immunization Patients Under 20 months Aged Out No longer eligible b ased on patient's age to complete this topic Varicella Vaccines Aged Out No longer eligible based on patient's age to complete this topic Procedures Procedure Name Priority Date/Time Associated Diagnosis Comments LAVENDER - EDTA Routine 09/06/2024 7:30 AM EDT Opioid dependence, uncomplicated (CMS/HCC) Encounter for screening for infections with a predominantly sexual mode of transmission SST - GOLD Routine 09/06/2024 7:30 AM EDT Opioid dependence, uncomplicated (CMS/HCC) Encounter for screening for infections with a predominantly sexual mode of transmission HEPATITIS C VIRUS QUANTITATIVE PCR Routine 09/06/2024 7:30 AM EDT Opioid dependence, uncomplicated (CMS/HCC) Encounter for screening for infections with a predominantly sexual mode of transmission AST, ALT, BILIRUBIN ELR STATE REPORTABLES Routine [...] AM EDT Opioid dependence, uncomplicated (CMS/HCC) HEPATITIS C ANTIBODY Routine 08/29/2024 9:45 AM [...] :45 AM EDT Opioid dependence, uncomplicated (CMS/HCC) from Last 3 Months Results * SST tube (09/06/2024 7:30 AM EDT) Extra Tube Hold for add-ons. 09/06/2024 4:[address] [facility] Comment:Auto resulted. Blood Venous blood specimen / Unknown 09/06/2024 7:30 AM EDT 09/06/2024 2:52 PM EDT Telma Carey MD LAB BLOOD ORDERABLES Fi nal Result Performing Organization Address City/[facility]/ZIP Co de Phone Number [facility] [address] [place] [address], [place] [phone] * Hepatitis C virus quantitative molecular study (09/06/2024 7:30 AM EDT) [facility] HCV Qual Interp Not Detected Not Detected LAB MOLECULAR DIAGNOSTICS METHOD 09/07/2024 10:58 AM EDT [facility] Comment:HCV RNA not detected , unable to report quantitative results. Blood Venous blood specimen / Unknown 09/06/2024 7:30 AM EDT 09/06/2024 2:52 PM EDT Telma Carey MD LAB BLOOD ORDERABLES Fi nal Result Performing Organization Address [facility] Co de Phone Number [facility] [address] [place] [address], [place] [phone] * Lavender tube (09/06/2024 7:30 AM EDT) [facility] Extra Tube Hold for add-ons. 09/06/2024 4:02 PM EDT [facility] Comment:Auto resulted. Blood Venous blood specimen / Unknown 09/06/2024 7:30 AM EDT 09/06/2024 2:52 PM EDT Telma Carey MD LAB BLOOD ORDERABLES Fi nal Result Performing Organization Address [facility]/ZIP Co de Phone Number [facility] [address] [place] [address], [place] [phone] * (ABNORMAL) Hepatitis C antibody (08/29/2024 9:45 AM EDT) [facility] Hepatitis C Antibody Positive (A) Negative LAB CHEMISTRY METHOD 08/29/2024 6:04 PM EDT [facility] Comment:If confirmation of t his positive HCV Ab screening test is needed, please redraw and order HCV Viral Load. Note--> This test may not be added on due to different specimen requirements. Blood Venous blood specimen / Unknown 08/29/2024 9:45 AM EDT 08/29/2024 3:21 PM EDT Telma Carey MD LAB BLOOD ORDERABLES Fi nal Result Performing Organization Address [facility]/ZIP Co de Phone Number [facility] [address] [place] [address], [place] [phone] * HIV 1,2 antibody, p24 antigen with reflex to differentiation (08/29/2024 9:45 AM EDT) Pathologist [facility] HIV Combo AB/AG Negative Negative LAB CHEMISTRY METHOD 08/29/2024 6:05 PM EDT [facility] Blood Venous blood specimen / Unknown 08/29/2024 9:45 AM EDT 08/29/2024 3:21 PM EDT Narrative [facility] - 08/29/2024 6:05 PM EDT This [...] ORDERABLES Fi nal Result Performing Organization Address [facility] Co de Phone Number [facility] [address] [place] [address], [place] [phone] * White no additive tube (08/29/2024 9:45 AM EDT) Pathologist [facility] Extra Tube Hold for add-ons. 08/29/2024 5:01 PM EDT [facility] Comment:Auto resulted. Urine Urine specimen obtained by clean catch procedure / Unknown 08/29/2024 9:45 AM EDT 08/29/2024 3:21 PM EDT Telma Carey MD LAB MICROBIOLOGY - GENE RAL ORDERABLES Final Result Performing Organization Address [facility]/ZIP Co de Phone Number [facility] [address] [place] [address], [place] [phone] * Hepatitis B surface antigen with reflex to confirmation (08/29/2024 9:45 AM EDT) Hepatitis B Surface Ag Negative Negative LAB CHEMISTRY METHOD 08/29/2024 5:36 PM EDT [facility] Blood Venous blood specimen / Unknown 08/29/2024 9:45 AM EDT 08/29/2024 3:21 PM EDT Narrative [facility] - 08/29/2024 5:36 PM EDT Over the counter supplements containing high doses of biotin may interfere with this assay. ??If interference is suspected, patients shoud be retested after refraining from biotin supplements for 72 hours. Telma Carey MD LAB BLOOD ORDERABLES Fi nal Result Performing Organization Address [facility]/ZIP Co de Phone Number [facility] [address] [place] [address], [place] [phone] * AST, ALT, Bilirubin ELR state reportables (08/29/2024 9:45 AM EDT) ALT (SGPT) 24 10 - 60 unit/L LAB CHEMISTRY METHOD 08/29/2024 7:03 PM EDT [facility] AST (SGOT) 24 10 - 42 unit/L LAB CHEMISTRY METHOD 08/29/2024 7:03 PM EDT [facility] Total Bilirubin 0.4 0.0 - 1.4 mg/dL LAB CHEMISTRY METHOD 08/29/2024 7:03 PM EDT [facility] Platelets 297 K/mcL LAB HEMETOLOGY METHOD 08/29/2024 7:03 PM EDT [facility] Blood Venous blood specimen / Unknown 08/29/2024 9:45 AM EDT 08/29/2024 3:21 PM EDT Telma Carey MD LAB BLOOD ORDERABLES Fi nal Result Performing Organization Address [facility] Co de Phone Number [facility] [address] [place] [address], [place] [phone] * Treponema pallidum antibody with reflex to RPR and particle agglutination (08/29/2024 9:45 AM EDT) Pathologist [facility] T. Pallidum Antibodies Negative Negative LAB CHEMISTRY METHOD 08/29/2024 8:07 PM EDT [facility] Blood Venous blood specimen / Unknown 08/29/2024 9:45 AM EDT 08/29/2024 3:21 PM EDT Telma Carey MD LAB BLOOD ORDERABLES Fi nal Result Performing Organization Address [facility] de Phone Number [facility] [address] [place] [address], [place] [phone] * (ABNORMAL) Hepatitis A antibody total with reflex IgM (08/29/2024 9:45 AM EDT) Hep A Total Ab Positive( A) Negative LAB CHEMISTRY METHOD 08/29/2024 6:04 PM EDT [facility] Blood Venous blood specimen / Unknown 08/29/2024 9:45 AM EDT 08/29/2024 3:21 PM EDT Narrative [facility] - 08/29/2024 6:04 PM EDT Over the counter supplements containing high doses of biotin may interfere with this assay. ??If interference is suspected, patients shoud be retested after refraining from biotin supplements for 72 hours. Telma Carey MD LAB BLOOD ORDERABLES Fi nal Result Performing Organization Address [facility] Co de Phone Number [facility] [address] [place] [address], [place] [phone] * Red tube (08/29/2024 9:45 AM EDT) [facility] Extra Tube Hold for add-ons. 08/29/2024 5:01 PM EDT [facility] Comment:Auto resulted. Blood Venous blood specimen / Unknown 08/29/2024 9:45 AM EDT 08/29/2024 3:26 PM EDT Telma Carey MD LAB BLOOD ORDERABLES Fi nal Result Performing Organization Address [facility] de Phone Number [facility] [address] [place] [address], [place] [phone] * Hepatitis A antibody IgM (08/29/2024 9:45 AM EDT) [facility] Hepatitis A Antibody IgM Negative Negative LAB CHEMISTRY METHOD 08/29/2024 7:20 PM EDT [facility] Blood Venous blood specimen / Unknown 08/29/2024 9:45 AM EDT 08/29/2024 3:21 PM EDT Narrative [facility] - 08/29/2024 7:20 PM EDT Over the counter supplements containing high doses of biotin may interfere with this assay. ??If interference is suspected, patients shoud be retested after refraining from biotin supplements for 72 hours. Telma Carey MD LAB BLOOD ORDERABLES Fi nal Result Performing Organization Address [facility] Co de Phone Number [facility] [address] [place] [address], [place] [phone] * Hepatitis B core antibody, total (08/29/2024 9:45 AM EDT) Pathologist [facility] Hep B Core Total Ab Negative Negative LAB CHEMISTRY METHOD 08/29/2024 6:05 PM EDT [facility] Blood Venous blood specimen / Unknown 08/29/2024 9:45 AM EDT 08/29/2024 3:21 PM EDT Telma Carey MD LAB BLOOD ORDERABLES Fi nal Result [facility] [address] [place] [address], [place] [phone] * (ABNORMAL) Hepatitis B surface antibody (08/29/2024 9:45 AM EDT) Pathologist [facility] Hepatitis B Surface Ab Positive (A) Negative LAB CHEMISTRY METHOD 08/29/2024 5:26 PM EDT [facility] Hepatitis B Surface Ab Quantitative >1,000.0 mIU/mL LAB CHEMISTRY METHOD 08/29/2024 5:26 PM EDT [facility] Blood Venous blood specimen / Unknown 08/29/2024 9:45 AM EDT 08/29/2024 3:21 PM EDT Narrative [facility] - 08/29/2024 5:26 PM EDT >=10 mIU/mL is considered to be consistent with immunity. Telma Carey MD LAB BLOOD ORDERABLES Fi nal Result [facility] [address] [place] [address], [place] [phone] * Complete blood count (08/29/2024 9:45 AM EDT) Pathologist [facility] WBC 8.2 4.8 - 10.8 K/[facility] LAB HEMETOLOGY METHOD 08/29/2024 3:35 PM EDT [facility] RBC 4.10 3.80 - 4.80 M/mcL LAB HEMETOLOGY METHOD 08/29/2024 3:35 PM EDT [facility] Hemoglobin 11.7 11.5 - 16.0 g/dL LAB HEMETOLOGY METHOD 08/29/2024 3:35 PM EDT [facility] Hematocrit 35.3 35.0 - 47.0 % LAB HEMETOLOGY METHOD 08/29/2024 3:35 PM EDT [facility] MCV 85.3 79.0 - 98.0 FL LAB HEMETOLOGY METHOD 08/29/2024 3:35 PM T [facility] MCH 28.3 27.0 - 32.0 pcg LAB HEMETOLOGY METHOD 08/29/2024 3:35 PM [facility] MCHC 33.1 32.0 - 37.0 g/dL LAB HEMETOLOGY METHOD 08/29/2024 3:35 PM T [facility] RDW 13.5 11.0 - 15.0 % LAB HEMETOLOGY METHOD 08/29/2024 3:35 PM T [facility] Platelets 297 130 - 400 K/mcL LAB HEMETOLOGY METHOD 08/29/2024 3:35 PM T [facility] MPV 10.8 7.0 - 11.0 FL LAB HEMETOLOGY METHOD 08/29/2024 3:35 PM EDT [facility] NRBC 0.0 <1.0 % LAB HEMETOLOGY METHOD 08/29/2024 3:35 PM T [facility] NRBC Absolute 0.00 <0.10 K/mcL LAB HEMETOLOGY METHOD 08/29/2024 3:35 PM [facility] Blood Venous blood specimen / Unknown 08/29/2024 9:45 AM EDT 08/29/2024 3:21 PM EDT us Telma Carey MD LAB BLOOD ORDERABLES Fi nal Result [facility] [address] [place] [address], [place] [phone] * (ABNORMAL) Comprehensive metabolic panel (08/29/2024 9:45 AM EDT) Sodium 138 133 - 145 mmol/L LAB CHEMISTRY METHOD 08/29/2024 4:22 PM T [facility] Potassium 4.2 3.5 - 5.5 mmol/L LAB CHEMISTRY METHOD 08/29/2024 4:22 PM [facility] Chloride 104 96 - 110 mmol/L LAB CHEMISTRY METHOD 08/29/2024 4:22 PM [facility] CO2 24 21 - 32 mmol/L LAB CHEMISTRY METHOD 08/29/2024 4:22 PM [facility] Anion Gap 10 3 - 11 LAB CHEMISTRY METHOD 08/29/2024 4:22 PM [facility] Glucose 117(H) 70 - 100 mg/dL LAB CHEMISTRY METHOD 08/29/2024 4:22 PM [facility] BUN 7 5 - 25 mg/dL LAB CHEMISTRY METHOD 08/29/2024 4:22 PM [facility] Creatinine 0.56 0.50 - 1.10 mg/dL LAB CHEMISTRY METHOD 08/29/2024 4:22 PM [facility] eGFR 122 >=60 mL/min/1. 73m2 LAB CHEMISTRY METHOD 08/29/2024 4:22 PM [facility] Comment:Calculation based on the??Chronic Kidney Disease Epidemiology Collaboration (CKD-EPI) equation refit??without adjustment for race. BUN/Creatinine Ratio 12.5 LAB CHEMISTRY METHOD 08/29/2024 4:22 PM T [facility] Calcium 9.0 8.5 - 10.5 mg/dL LAB CHEMISTRY METHOD 08/29/2024 4:22 PM EDT [facility] AST (SGOT) 24 10 - 42 unit/L LAB CHEMISTRY METHOD 08/29/2024 4:22 PM [facility] ALT (SGPT) 24 10 - 60 unit/L LAB CHEMISTRY METHOD 08/29/2024 4:22 PM EDT [facility] Alkaline Phosphatase 84 42 - 121 unit/L LAB CHEMISTRY [facility]24 [facility] Total Protein 6.8 6.0 - 8.0 g/dL LAB CHEMISTRY METHOD 08/29/2024 4:22 PM [facility] Albumin 3.7 3.2 - 5.0 g/dL LAB CHEMISTRY METHOD 08/29/2024 4:22 PM [facility] Total Bilirubin 0.4 0.0 - 1.4 mg/dL LAB CHEMISTRY METHOD 08/29/2024 4:22 PM [facility] Blood Venous blood specimen / Unknown 08/29/2024 9:45 AM EDT 08/29/2024 3:21 PM EDT Telma Carey MD LAB BLOOD ORDERABLES nal Result [facility] [address] [place] [address], from Last 3 Months [facility] Care Teams Shredder Operator Relationship Specialty Start Date End Date Physician, Pcp Unknown PCP - General 08/30/24
--- NOTE | 2024-09-07 13:46 | ECG_ITS ---
Test Reason : QTC Blood Pressure : */* mmHG Vent. Rate : 73 BPM Atrial Rate : 73 BPM P-R Int : 178 ms QRS Dur : 82 ms QT Int : 454 ms P-R-T Axes : 54 58 58 degrees QTcB Int : 500 ms Normal sinus rhythm Prolonged QT Abnormal ECG When compared with ECG of 07-Sep-2024 10:41, No significant change was found Referred By: Katrina Gary Electronically Signed By: STEPHANIE UREÑA
[2024-09-07 14:41] VITALS: BP 116/71; PULSE 86; RESP 15; TEMP 36.6; O2SAT 95
[2024-09-07 14:47] VITALS: BP 116/71; PULSE 86; RESP 15; TEMP 36.6; O2SAT 95
== END 2024-09-07 14:48 | disposition home or self-care (01) ==
PROVIDERS: Physician Assistant; Registered Nurse Emergency; Emergency Provider Emergency Medicine
DX: R60.0 Localized edema (principal); R94.31 Abnormal electrocardiogram [ECG] [EKG]; F11.20 Opioid dependence, uncomplicated; F17.210 Nicotine dependence, cigarettes, uncomplicated
CPT/HCPCS: 36415; 71046; 80053; 81001; 83735; 83880; 84484; 85025; 85379; 87086; 87147; 93005; 93970; 99284

== ENCOUNTER → 2024-09-07 10:31 | Outpatient (BNV) | payer MEDICAID, SELFPAY | PROVIDERS: Emergency Provider Emergency Medicine; Visit Provider Internal Medicine | DX: R07.9 Chest pain, unspecified (principal); I45.81 Long QT syndrome | CPT/HCPCS: 93010 ==

== ENCOUNTER → 2024-09-07 11:38 | Outpatient (BNV) | payer MEDICAID, SELFPAY | PROVIDERS: Emergency Provider Emergency Medicine; Visit Provider Radiology Diagnostic Radiology | DX: R60.0 Localized edema (principal); R06.09 Other forms of dyspnea | CPT/HCPCS: 71046; 93970 ==

== ENCOUNTER → 2024-10-17 07:05 | Outpatient (REF) | payer MEDICAID, SELFPAY ==
--- NOTE | 2024-10-17 07:30 | ECG_ITS ---
Test Reason : CHECK QTC Blood Pressure : */* mmHG Vent. Rate : 62 BPM Atrial Rate : 62 BPM P-R Int : 180 ms QRS Dur : 84 ms QT Int : 452 ms P-R-T Axes : 52 49 65 degrees QTcB Int : 458 ms Normal sinus rhythm Normal ECG When compared with ECG of 07-Sep-2024 14:09, No significant change was found Referred By: Sriram Jacome Electronically Signed By: GREGG COYNE MD
[2024-10-17 07:31] LABS: MANUAL DIFF FLAG NO
[2024-10-17 07:57] LABS: Basophils Percent Auto 0.4 % (0-2); Eosinophils Absolute Auto 0.2 X10*3/uL (0.0-0.4); Eosinophils Percent Auto 2.2 % (0-4); Hematocrit 38.6 % (37.0-47.0); Hemoglobin 12.7 g/dl (12.0-16.0); Imm Gran Abs Auto 0.03 X10*3/uL (0.00-0.03); Imm Gran Pct Auto 0.4 % (0.0-0.4); Lymphocytes Absolute Auto 1.8 X10*3/uL (1.2-4.9); Mean Corpuscular HGB Conc 32.9 g/dl (31.0-35.0); Mean Corpuscular Volume 82.1 fL (80.0-98.0); Monocytes Absolute Auto 0.5 X10*3/uL (0.1-1.2); Monocytes Percent Auto 6.7 % (2-11); Neutrophils Absolute Auto 4.4 x10*3/uL (2.0-8.3); Neutrophils Percent Auto 64.3 % (45-73); Platelet Count 281 X10*3/uL (160-400); Red Cell Distribution Width 13.5 % (11.0-16.0); White Blood Count 6.8 X10*3/uL (4.8-10.8)
[2024-10-17 08:03] LABS: Estimated Average Glucose 108 mg/dL; Hemoglobin A1C 114.1778 umol/L; Hemoglobin A1c % 5.4 % (<6.0); Total Hemoglobin (HGBA1C) 3253.7552 umol/L
[2024-10-17 08:18] LABS: Alanine Aminotransferase 19 U/L (0-31); Albumin Level 4.3 g/dL (3.5-5.0); Alkaline Phosphatase 81 U/L (39-117); Anion Gap 16 (12-20); Aspartate Amino Transferase 30 U/L (5-31); Bilirubin Total 0.3 mg/dL (0.0-1.0); Blood Urea Nitrogen 7 mg/dL (9-16); Calcium 9.5 mg/dL (8.4-10.2); Carbon Dioxide 25 mmol/L (22-29); Chloride 103 mmol/L (96-108); Cholesterol 188 mg/dL (<200); Estimated Glomerular Filt Rate > 60; Glucose Random 97 mg/dL (60-115); HDL Cholesterol 53 mg/dL (>40); LDL Cholesterol Calculated 108 mg/dL (<100); Potassium 3.9 mmol/L (3.3-5.1); Sodium 140 mmol/L (135-145); Total Protein 7.4 g/dL (6.5-8.0); Triglycerides 137 mg/dL (<150)
[2024-10-17 08:35] LABS: Syphilis Screen Nonreactive (Nonreactive); Thyroid Stimulating Hormone 2.32 uIU/mL (0.32-4.0); Vitamin D 25-OH Total 33.9 ng/mL (>30)
[2024-10-17 08:48] LABS: Folate 13.8 ng/mL (> or = 4.0)
== END ==
LOC: HO.CARD 07:05
PROVIDERS: Visit Provider Psychiatry & Neurology Child & Adolescent Psychiatry
DX: F15.959 Other stimulant use, unspecified with stimulant-induced psychotic disorder, unspecified (principal); F90.8 Attention-deficit hyperactivity disorder, other type; Z11.1 Encounter for screening for respiratory tuberculosis
CPT/HCPCS: 36415; 80053; 80061; 82306; 82746; 83036; 84146; 84425; 84439; 84443; 85025; 86481; 86780; 93005

== ENCOUNTER → 2024-10-17 07:30 | Outpatient (BNV) | payer MEDICAID, SELFPAY | PROVIDERS: Visit Provider Internal Medicine Cardiovascular Disease | DX: I45.9 Conduction disorder, unspecified (principal) | CPT/HCPCS: 93010 ==

== ENCOUNTER 2025-01-18 09:15 | Emergency (ER) | payer MEDICAID, SELFPAY ==
[2025-01-18 09:37] VITALS: BP 133/75; PULSE 95; RESP 18; TEMP 36.3; O2SAT 98; BMI 32.0
--- NOTE | 2025-01-18 10:41 | ED_ITS ---
HPI - Medical Clearance General Chief complaint: Medical Clearance Stated complaint: Medical clearance Time Seen by Provider: 01/18/25 10:40 Source: patient Mode of arrival: ambulatory Limitations: no limitations History of Present Illness ED Provider: Yelena Buenrostro PA-C HPI Narrative: 34 yo female with history of polysubstance use disorder on methadone who presents to the ER for medical clearance. She is in a recovery residence program with [facility] and was sober from illicit drugs x6 months until she relapsed yesterday. She smoked crack cocaine. She states she felt sweaty and lethargic afterward. She has smoked cocaine laced with fentanyl before and it felt similar. She wants to go back to her recovery program but they require medical clearance. She reports a rash in her inner thighs after sweating a lot last night and walking on the streets. It is red and burning. No urinary symptoms. Denies chance of . No N/V/D, abdominal pain, chest pain or SOB. Had mild headache this morning that is now resolved. MD complaint: medical clearance requested Onset (ago): day(s) (1) Alleged Intoxication: Yes Compliant with Home Medications: Yes Traumatic Symptoms: denies traumatic injury Associated Symptoms: other (rash, headache) Treatments Prior to Arrival: none Related Information Previous Rx's ?Medication ?Instructions ?Recorded doxycycline hyclate 100 mg tablet 100 mg PO BID 7 days #14 tabs 09/07/24 furosemide 20 mg tablet (Lasix) 20 mg PO DAILY 5 days #5 tabs 09/07/24 nystatin 100,000 unit/gram topical 1 appl topical BID #15 grams 01/18/25 powder Allergies Allergy/AdvReac Type Severity Reaction Status Date / Time No Known Allergies Allergy Verified 01/18/25 09:39 Review of Systems Review of Systems: Yes all other systems are reviewed and are negative [facility] Social History Social History Advance Directives: No Advance Directives Information Provided: Yes Physical Exam Exam: Exam: Appearance: Alert. Oriented X3. No acute distress. Head: normocephalic, atraumatic. Eyes: Pupils equal, round, not pinpoint ENT: Pharynx normal. Neck: Normal inspection. Neck supple. CVS: Normal heart rate and rhythm. Pulses normal. Respiratory: No respiratory distress. Breath sounds normal. Abdomen: Soft and nontender. +BS x4 Skin: Skin warm and dry. Normal skin color. Normal skin turgor. inner proximal thighs with erythematous rash, no ulcerations or pustules. Extremities: No lower extremity edema. No joint swelling. Neuro/psych: Oriented X 3. grossly normal, nonfocal Normal speech and cognition. Vital Signs: Vital Signs: Last Vital Signs Temp 97.3 F 01/18/25 11:18 Pulse 95 01/18/25 11:18 Resp 18 01/18/25 11:18 BP 133/75 01/18/25 11:18 Pulse Ox 98 01/18/25 11:18 O2 Del Method Room Air 01/18/25 11:18 BMI result Body Mass Index 32.0 Medical Decision Making Medical Decision Making MDM Narrative: 34 yo female with polysubstance use disorder on methadone presenting for medical clearance after smoking cocaine yesterday on the street, leaving her residential recovery program. she wants to go back and stay sober. Utox + opiates, methadone, fentanyl, and cocaine. results d/w patient. she suspected cocaine was laced with fentanyl given how she felt afterward. her VS are stable and her exam is unremarkable, aside from a mild rash on her inner upper thighs c/w possible mild early fungal rash vs heat rash. will pres cribe topical antifungal powder she is stable for return to her program Differential Diagnosis Differential Diagnoses: The differential diagnosis associated with the presentation includes polysubstance use, overdose fungal rash, cellulitis, herpes, heat rash Lab Data [facility] Lab Attestation statement: I reviewed the patient's lab results. as above Labs: Lab Results 01/18/25 Range/Units 10:46 Urine Opiates Screen POSITIVE H (Not Detect) Ur Buprenorphine Scrn Not Detected (Not Detect) ng/mL Ur Oxycodone Screen Not Detected (Not Detect) ng/mL Urine Methadone Screen Positive H (Not Detect) ng/mL Urine Fentanyl Screen POSITIVE H (Not Detect) Ur Barbiturates Screen Not Detected (Not Detect) Ur Phencyclidine Scrn Not Detected (Not Detect) Ur Amphetamines Screen Not Detected (Not Detect) U Benzodiazepines Scrn Not Detected (Not Detect) Urine Cocaine Screen POSITIVE H (Not Detect) U Marijuana (THC) Screen Not Detected (Not Detect) External Record Review External record reviewed: Prior outpatient labs Tests considered The following testing was considered but not selected: labs considered but not required by the program Prescription Management I considered prescription management with: Antibiotic Chronic Conditions Patient?s care impacted by: Other (polysubstance use disorder) Social Determinants Patient?s care significantly limited by Social Determinants of Health including: Problems related to primary support group and Other Social Determinant of Health Critical Care Time Critical Care Time Critical Care Time: No Discharge Plan Discharge Clinical Impression: Cocaine use Patient Disposition: Home, Self-Care Instructions: Cocaine Use Disorder (ED) Additional Instructions: You are medically cleared to return to your program Your urine toxicology was positive for opiates, methadone, fentanyl and cocaine Continue sobriety with the support of your program Use the prescribed powder as prescribed on the rash of your legs Follow up with your PCP as needed If you develop new or worsening symptoms call 911 or come back to the ER for further evaluation. Prescriptions: New nystatin 100,000 unit/gram powder 1 appl topical BID Qty: 15 0RF No Action doxycycline hyclate 100 mg tablet 100 mg PO BID 7 Days Qty: 14 0RF furosemide [Lasix] 20 mg tablet 20 mg PO DAILY 5 Days Qty: 5 0RF Interventions: ED Discharge Assessment Last Done: 01/18/25 11:18 Discharge Date/Time: 01/18/25 11:19 Print Language: Divehi
[2025-01-18 11:04] LABS: Cannabinoid Screen Urine Not Detected (Not Detect)
[2025-01-18 11:18] VITALS: BP 133/75; PULSE 95; RESP 18; TEMP 36.3; O2SAT 98
--- OUTSIDE RECORDS SUMMARY | 2025-01-18 12:09 | XMS_ITS | Encounter Summary ---
Author Organization [employer] [address] Address [address] [place] [address] Care Team Providers Care Diesel Technician Name Role Phone Physician, Pcp Unknown Primary Care Provider Miranda vailable Encounter Details Date Type Department Care Team (Late st Contact Info) Description 09/06/[address] [facility] - Main Lab [address] [facility] [place] [address] Telma Carey MD [address] [place] [address] Opioid dependence, uncomplicated (CMS/HCC V24, CMS/HCC V28); Encounter for screening for infections with a [...] Hold for add-ons. 09/06/2024 4:02 PM EDT [facility] Comment:Auto resulted. Blood Venous blood specimen / Unknown 09/06/2024 7:30 AM EDT 09/06/2024 2:52 PM EDT Telma Carey MD LAB BLOOD ORDERABLES Fi nal Result Performing Organization Address City/[facility] Co de Phone Number [facility] [address] [place] [address], [place] [phone] * SST tube (09/06/2024 7:30 AM EDT) [facility] Extra Tube Hold for add-ons. 09/06/2024 4:02 PM EDT [facility] Comment:Auto resulted. Blood Venous blood specimen / Unknown 09/06/2024 7:30 AM EDT 09/06/2024 2:52 PM EDT Telma Carey MD LAB BLOOD ORDERABLES Fi nal Result Performing Organization Address [facility] Co de Phone Number [facility] [address] [place] [address], [place] [phone] * Hepatitis C virus quantitative molecular study (09/06/2024 7:30 AM EDT) [facility] HCV Qual Interp Not Detected Not Detected LAB MOLECULAR DIAGNOSTICS METHOD 09/07/2024 10:58 AM EDT [facility] Comment:HCV RNA not detected , unable to report quantitative results. Blood Venous blood specimen / Unknown 09/06/2024 7:30 AM EDT 09/06/2024 2:52 PM EDT Telma Carey MD LAB BLOOD ORDERABLES Fi nal Result Performing Organization Address City/[facility]/ZIP Co de Phone Number [facility] HOSPITAL LAB [address] [place] [address], documented in this encounter Visit Diagnoses Diagnosis Opioid dependence, uncomplicated (CMS/[facility] V24, [facility] V28) Encounter for screening for infections with a predominantly sexual mode of transmission documented in this encounter Care Teams Diesel Technician Relationship Specialty Start Date End Date Physician, Pcp Unknown PCP - General 08/30/24 documented as of this encounter
--- OUTSIDE RECORDS SUMMARY | 2025-01-18 12:09 | XMS_ITS | Clinical Summary ---
Author Organization [facility] Address [address] [place] [address] Care Team Providers Care Medical Billing Coordinator Name Role Phone Unavailable Primary Care Provider [...] (ATARAX) 50 mg tabletIndications:B ipolar 1 disorder ([facility]) Take 1 Tablet by mouth 3 (three) times daily as needed for anxiety for up to 30 days 90 Tablet 5 Active FLUoxetine 60 mg tabIndications:Bipo lar 1 disorder ([facility]) Take 1 Tablet by mouth daily. for 30 days 30 Tablet 5 Active OLANZapine (ZYPREXA) 10 mg disintegrating tabletIndications:B ipolar 1 disorder ([facility]) Take 1 Tablet by mouth nightly at bedtime for 30 days 30 Tablet 5 Active Active Problems Problem Noted Date Diagnosed Date Bipolar 1 disorder ([facility]) 07/21/2024 Overview (07/21/2024): Not currently followed by psych. Hoping to go back to [facility] in a few weeks. Assessment & Plan (07/21/2024 4:21 PM EST): -renewed scripts -offered in house psych, pt declined Depression 07/21/2024 Substance use disorder 07/21/2024 Overview (07/21/2024): Moved from for [facility]. Asked to leave. Hoping she can go [...] HTN. -RTC for recheck in 1 week Social History Tobacco Use Types Packs/Day Years [...] Cervical Cancer Screening 2010 Pap Smear 2010 [id number] (2023- season) 2024 Alcohol and Drug Screen 06/07/2024 Imm-Influenza (#1) 2025 Hypertension Screening (#1) 07/21/2025 Cervical Ablation/Cold-Knife Conization Discontinued Cervical Cryotherapy Discontinued Colposcopy Discontinued Endometrial Biopsy Discontinued Excision/Leep Discontinued HPV Genotyping Discontinued Vaginal Pap Discontinued Vulvoscopy Discontinued Insurance [facility] Member Subscriber Plan / Payer (Ef fective 2024-Present) Name:Adore Messer Relation to Subscriber:Self Name:Adore Messer Payer ID:[id number] Group ID:Not on file Type:Medicaid Address: [address] [place] [address] [facility] MEDICAID
== END 2025-01-18 11:19 | disposition home or self-care (01) ==
PROVIDERS: Emergency Provider Emergency Medicine
DX: F14.90 Cocaine use, unspecified, uncomplicated (principal); R53.83 Other fatigue; R21 Rash and other nonspecific skin eruption
CPT/HCPCS: 80307; 99282; 99283

== ENCOUNTER 2025-01-27 11:30 | Emergency (ER) | payer OTHER, SELFPAY ==
[2025-01-27 11:35] VITALS: BP 121/75; PULSE 104; RESP 18; TEMP 36.9; O2SAT 97; BMI 29.3
--- NOTE | 2025-01-27 11:36 | ED_ITS ---
HPI - General Adult General Chief complaint: General Medical Stated complaint: med issues Time Seen by Provider: 01/27/25 11:39 Source: patient Mode of arrival: ambulatory Limitations: no limitations History of Present Illness ED Provider: SHARI MARSHALL PA-C HPI narrative: 34 year old female presents to the ED today requesting methadone dose. She is typically dosed with 16 mg daily. Patient states she was last dosed at [facility] on [address] yesterday. No complaints. Related Data Home Medications ?Medication ?Instructions ?Recorded ?Confirmed methadone 10 mg/mL oral concentrate 16 mg PO DAILY 01/27/25 Previous Rx's ?Medication ?Instructions ?Recorded doxycycline hyclate 100 mg tablet 100 mg PO BID 7 days #14 tabs 09/07/24 furosemide 20 mg tablet (Lasix) 20 mg PO DAILY 5 days #5 tabs 09/07/24 nystatin 100,000 unit/gram topical 1 appl topical BID #15 grams 01/18/25 powder Allergies Allergy/AdvReac Type Severity Reaction Status Date / Time No Known Allergies Allergy Verified 01/27/25 11:37 Review of Systems Review of Systems: Yes all other systems are reviewed and are negative [facility] Past Medical History Attestation statement: The following information was validated with the patient. Source: old records reviewed and nursing notes reviewed Social History Social History Advance Directives: No Advance Directives Information Provided: Yes Physical Exam ED Vital Signs: Vital Signs - 24 hr 01/27/25 11:35 01/27/25 12:08 Temperature 98.5 F 98.5 F Pulse Rate 104 H 104 H Respiratory Rate 18 18 Blood Pressure 121/75 121/75 Pulse Oximetry 97 97 Oxygen Delivery Method Room Air Room Air BMI result Body Mass Index 29.3 Tachycardic General: Well appearing, in no acute distress. Skin: Warm, dry, intact. No rashes or lesions. Head: Normocephalic, atraumatic. EENT: Hearing is intact b/l. Conjunctiva clear. Sclera is anicteric. PERRLA. EOM intact. Moist mucous membranes.? Cardiac: Chest wall symmetric Ext: Upper and lower extremities atraumatic, without tenderness, deformity, swelling or erythema Neuro: AOx3. Normal speech. Ambulating with steady gait. Course Course Course Narrative: Last dose letter faxed to pharmacy - 16 mg methadone ordered and administered. patient tolerated well. advised to follow up with [facility] clinic for further dosing. Medications Administered Discontinued Medications Generic Name Dose Route Start Last Admin Trade Name Joycelyn PRDave Reason Stop Dose Admin Methadone HCl 16 mg 01/27/25 11:39 01/27/25 12:06 Methadone Hcl 20 Mg/2 Ml Oral.Conc PO 01/27/25 11:40 16 mg ONCE ONE Administration Medical Decision Making Medical Decision Making MDM Narrative: 34 year old female presents to the ED today requesting methadone dose. tachycardic, vitals are otherwise wnl. she is well appearing and in NAD. Differential diagnosis includes medication noncompliance, methadone dependence, methadone withdrawal Patient presents with last dose letter. Last dose yesterday 01/26/2025 with 16 mg methadone. Last dose letter faxed to pharmacy. Methadone ordered and administered. Patient tolerated well. Stable for discharge at this time. Advised to follow up with methadone clinic for further dosing. Differential Diagnosis Differential Diagnoses: The differential diagnosis associated with the presentation includes as above. Admission/Observation not indicated. External Record Review External record reviewed: Inpatient record Chronic Conditions Patient?s care impacted by: Other (Methadone dependence) Social Determinants Patient?s care significantly limited by Social Determinants of Health including: Other Social Determinant of Health Critical Care Time Critical Care Time Critical Care Time: No Discharge Plan Discharge Clinical Impression: Methadone dependence Patient Disposition: Home, Self-Care Additional Instructions: You were seen in the emergency department for methadone dosing. We called and verified your last dose, which is methadone 16 mg, which was last given 01/26/2025. We had given you methadone 16 mg in the department today. Please follow-up with your methadone clinic tomorrow for additional dosing. If any new or worsening symptoms occur, including but not limited to chest pain or shortness a breath, please return for re-evaluation. Prescriptions: No Action methadone 10 mg/mL Concentrate 16 mg PO DAILY doxycycline hyclate 100 mg tablet 100 mg PO BID 7 Days Qty: 14 0RF furosemide [Lasix] 20 mg tablet 20 mg PO DAILY 5 Days Qty: 5 0RF nystatin 100,000 unit/gram powder 1 appl topical BID Qty: 15 0RF Referrals: Physician,Unknown J [Physician, Medical] Interventions: ED Discharge Assessment Last Done: 01/27/25 12:08 Discharge Date/Time: 01/27/25 12:12 Print Language: Lithuanian
--- NOTE | 2025-01-27 11:44 | HE.PHANOTE ---
RE: methadone Last dose 16mg 01/26/25 JEN Patel
[2025-01-27] MEDS: methADONE HCl 20 MG/2 ML ORAL.CONC 16 MG PO (12:06)
[2025-01-27 12:08] VITALS: BP 121/75; PULSE 104; RESP 18; TEMP 36.9; O2SAT 97
== END 2025-01-27 12:12 | disposition home or self-care (01) ==
LOC: HO.ED 12:11
PROVIDERS: Emergency Provider Emergency Medicine; PCP Internal Medicine
DX: F11.20 Opioid dependence, uncomplicated (principal)
CPT/HCPCS: 99282; 99283

== ENCOUNTER 2025-01-28 13:17 | Emergency (ER) | payer OTHER, SELFPAY ==
[2025-01-28 13:25] VITALS: BP 131/75; PULSE 81; RESP 16; TEMP 36.2; O2SAT 98; BMI 32.5
--- NOTE | 2025-01-28 13:38 | ED.GENADULT ---
HPI - General Adult General Chief complaint: General Medical Stated complaint: med issue Time Seen by Provider: 01/28/25 13:26 Source: patient, RN notes reviewed and old records reviewed Mode of arrival: ambulatory Limitations: no limitations History of Present Illness ED Provider: Dinah DANIEL narrative: 34-year-old female with a past medical history significant for methadone dependence presents for evaluation of methadone dosing. She reports that she is unable to slate picker her prescription of methadone for the weekend. She was dose in the department yesterday 16 mg as she takes 16 mg daily. She is requesting her dose for Wednesday so that she may follow up with the clinic tomorrow Related Data Home Medications ?Medication ?Instructions ?Recorded ?Confirmed methadone 10 mg/mL oral concentrate 16 mg PO DAILY 01/27/25 01/27/25 Previous Rx's ?Medication ?Instructions ?Recorded doxycycline hyclate 100 mg tablet 100 mg PO BID 7 days #14 tabs 09/07/24 furosemide 20 mg tablet (Lasix) 20 mg PO DAILY 5 days #5 tabs 09/07/24 nystatin 100,000 unit/gram topical 1 appl topical BID #15 grams 01/18/25 powder Allergies Allergy/AdvReac Type Severity Reaction Status Date / Time No Known Allergies Allergy Verified 01/28/25 13:28 Review of Systems Constitutional: Constitutional: Denies body ache(s), Denies chills and Denies fever(s) Cardiovascular: Cardiovascular: Denies chest pain and Denies dyspnea Respiratory: Respiratory: Denies dyspnea PMFSH Social History Social History Do you have a plan to hurt others: No Plan Physical Exam ED Vital Signs: Vital Signs - 24 hr 01/28/25 13:25 Temperature 97.2 F Pulse Rate 81 Respiratory Rate 16 Blood Pressure 131/75 Pulse Oximetry 98 Oxygen Delivery Method Room Air BMI result Body Mass Index 32.5 Const General: healthy appearing, comfortable, no acute distress, alert and awake Nutritional Appearance: well nourished Orientation/consciousness: patient oriented x3 HENMT Head: Yes normocephalic and Yes atraumatic Eyes Eyelids: Yes eyelids normal Conjunctivae: conjunctivae normal Sclerae: sclerae normal Corneas: corneas normal Pupils: Equal, round and reactive pupils present EOM: EOMs intact bilaterally Neck Neck: Yes full ROM Resp Effort & Inspection: normal respiratory effort, able to speak in complete sentences and not labored Skin General skin exam: elasticity normal Neuro General: patient oriented x3 Cranial nerves: Yes Equal, round and reactive pupils present and Yes Bilaterally intact EOM present Cognition (Neuro): normal cognition Extrem Other: Moving all extremities well without any obvious deformities Medical Decision Making Medical Decision Making MDM Narrative: Patient's last methadone dose was administered in the department yesterday. Plan to administer her dose for today. Patient encouraged to avoid missing dose in the clinic to avoid ER resources for methadone dosing. Differential Diagnosis Differential Diagnoses: The differential diagnosis associated with the presentation includes Opioid dependence Methadone dosing Substance abuse Medication noncompliance Discharge Plan Discharge Clinical Impression: Methadone dependence Patient Disposition: Home, Self-Care Instructions: Opioid Use Disorder (ED) Additional Instructions: You were given a dose of methadone 16 mg in the emergency department today. Follow-up with your methadone clinic for future dosing Prescriptions: No Action methadone 10 mg/mL Concentrate 16 mg PO DAILY doxycycline hyclate 100 mg tablet 100 mg PO BID 7 Days Qty: 14 0RF furosemide [Lasix] 20 mg tablet 20 mg PO DAILY 5 Days Qty: 5 0RF nystatin 100,000 unit/gram powder 1 appl topical BID Qty: 15 0RF Print Language: Azeri
[2025-01-28] MEDS: methADONE HCl 20 MG/2 ML ORAL.CONC 16 MG PO (13:42)
[2025-01-28 13:45] VITALS: BP 131/75; PULSE 81; RESP 16; TEMP 36.2; O2SAT 98
--- OUTSIDE RECORDS SUMMARY | 2025-01-28 13:47 | XMS_ITS | Encounter Summary ---
Author Organization [employer] Address [address] [place] [address] Care Team Providers Care Egg Packer Name Role Phone Physician, Pcp Unknown Primary Care Provider Miranda vailable Encounter Details Date Type Department Care Team (Late st Contact Info) Description 09/06/2024 Lab Requisition [facility] - Main Lab [address] [facility] [place] [address] Telma Carey MD [address] [place] [address] Opioid dependence, uncomplicated (CMS/HCC V24, CMS/HCC V28); [...] Hold for add-ons. 09/06/2024 4:02 PM EDT [facility] Comment:Auto resulted. Blood Venous blood specimen / Unknown 09/06/2024 7:30 AM EDT 09/06/2024 2:52 PM EDT Telma Carey MD LAB BLOOD ORDERABLES Fi nal Result Performing Organization Address City/[facility] Co de Phone Number [facility] [address] [place] [address], [place] [phone] * SST tube (09/06/2024 7:30 AM EDT) [facility] Extra Tube Hold for add-ons. 09/06/2024 4:02 PM EDT [facility] Comment:Auto resulted. Blood Venous blood specimen / Unknown 09/06/2024 7:30 AM EDT 09/06/2024 2:52 PM EDT Telma Carey MD LAB BLOOD ORDERABLES Fi nal Result Performing Organization Address [facility] Co de Phone Number [facility] [address] [place] [address], [place] [phone] * Hepatitis C virus quantitative molecular study (09/06/2024 7:30 AM EDT) [facility] HCV Qual Interp Not Detected Not Detected LAB MOLECULAR DIAGNOSTICS METHOD 09/07/2024 10:58 AM EDT [facility] Comment:HCV RNA not detected , unable to report quantitative results. Blood Venous blood specimen / Unknown 09/06/2024 7:30 AM EDT 09/06/2024 2:52 PM EDT Telma Carey MD LAB BLOOD ORDERABLES Fi nal Result Performing Organization Address City/[facility]/ZIP Co de Phone Number [facility] [address] [place] [address], documented in this encounter Visit Diagnoses Diagnosis Opioid dependence, uncomplicated (CMS/[facility] V24, [facility] V28) Encounter for screening for infections with a predominantly sexual mode of transmission documented in this encounter Care Teams Egg Packer Relationship Specialty Start Date End Date Physician, Pcp Unknown PCP - General 08/30/24 documented as of this encounter
--- OUTSIDE RECORDS SUMMARY | 2025-01-28 13:47 | XMS_ITS | Clinical Summary ---
Author Organization [facility] Address [address] [place] [address] Care Team Providers Care Outpatient Scheduler Name Role Phone Unavailable Primary Care Provider [...] (ATARAX) 50 mg tabletIndications:B ipolar 1 disorder ([facility]) Take 1 Tablet by mouth 3 (three) times daily as needed for anxiety for up to 30 days 90 Tablet 5 Active FLUoxetine 60 mg tabIndications:Bipo lar 1 disorder ([facility]) Take 1 Tablet by mouth daily. for 30 days 30 Tablet 5 Active OLANZapine (ZYPREXA) 10 mg disintegrating tabletIndications:B ipolar 1 disorder ([facility]) Take 1 Tablet by mouth nightly at bedtime for 30 days 30 Tablet 5 Active Active Problems Problem Noted Date Diagnosed Date Bipolar 1 disorder ([facility]) 07/21/2024 Overview (07/21/2024): Not currently followed by psych. Hoping to go back to [facility] in a few weeks. Assessment & Plan (07/21/2024 4:21 PM EST): -renewed scripts -offered in house psych, pt declined Depression 07/21/2024 Substance use disorder 07/21/2024 Overview (07/21/2024): Moved from for [facility]. Asked to leave. Hoping she can go [...] Cervical Cancer Screening 2010 Pap Smear 2010 [id number] (2023- season) 2024 Alcohol and Drug Screen 06/07/2024 Imm-Influenza (#1) 2025 Hypertension Screening (#1) 07/21/2025 Cervical Ablation/Cold-Knife Conization Discontinued Cervical Cryotherapy Discontinued Colposcopy Discontinued Endometrial Biopsy Discontinued Excision/Leep Discontinued HPV Genotyping Discontinued Vaginal Pap Discontinued Vulvoscopy Discontinued Insurance [facility] Member Subscriber Plan / Payer (Ef fective 2024-Present) Name:Adore Messer Relation to Subscriber:Self Name:Adore Messer Payer ID:[id number] Group ID:Not on file Type:Medicaid Address: [address] [place] [address] [facility] MEDICAID
[2025-01-28 13:48] VITALS: BP 131/75; PULSE 81; RESP 16; TEMP 36.2; O2SAT 98
== END 2025-01-28 13:53 | disposition home or self-care (01) ==
PROVIDERS: Emergency Provider Emergency Medicine; PCP Internal Medicine
DX: F11.20 Opioid dependence, uncomplicated (principal)
CPT/HCPCS: 99283; 99284

== ENCOUNTER 2025-03-09 10:06 | Outpatient (REF) | payer OTHER, SELFPAY ==
[2025-03-12 09:57] LABS: TS Negative Control Passed; TS Panel A 0; TS Panel B 0; TS Positive Control Passed; TSpotTB Negative (Negative)
== END 2025-03-09 10:07 | disposition home or self-care (01) ==
LOC: HO.HMGCLDS 10:06
PROVIDERS: PCP Internal Medicine; Visit Provider Nurse Practitioner Family
DX: Z02.0 Encounter for examination for admission to educational institution (principal); Z11.1 Encounter for screening for respiratory tuberculosis
CPT/HCPCS: 36415; 86481; 99212

== ENCOUNTER 2025-03-09 10:06 | Outpatient (AMB) | payer OTHER, SELFPAY ==
[2025-03-09 10:11] VITALS: BP 116/68; PULSE 63; TEMP 37; O2SAT 97; BMI 33.3
--- NOTE | 2025-03-09 10:11 | AM.OFFWIN_ITS ---
Intake Vital Signs 03/09/25 10:11 Height 5 ft 2 in Weight 182 lb BMI 33.3 BP 116/68 Blood Pressure Location Lt brachial Position Sitting Pulse 63 Pulse Source Pulse Oximeter Temp 98.6 F Temp Source Oral Pulse Oximetry (%) 97 Oxygen Delivery Method Room Air Intake Visit Reasons: EP school physical exam Allergies No Known Allergies Allergy (Verified 03/09/25 10:12) HPI EP school physical exam HPI Details 34 year old female patient presents to [facility] clinic today requesting a physical for school. 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 She also needs a TB test for this. No risk factors. She currently works at [employer] and does a lot of physical work. She feels well- equipped to start program. She denies any injuries or medical complications that would prohibit her from completing program or working as a nurses aide. Review of Systems Const All systems reviewed & are unremarkable except as noted in HPI and below Physical Exam Vital Signs: Last Vital Signs Temp 98.6 F 03/09/25 10:11 Pulse 63 03/09/25 10:11 BP 116/68 03/09/25 10:11 Pulse Ox 97 03/09/25 10:11 Oxygen Delivery Method Room Air 03/09/25 10:11 BMI result Body Mass Index 33.3 Const General: cooperative, healthy appearing, comfortable and no acute distress Nutritional Appearance: overweight HEENT Head: Yes normal to inspection Ears: hearing grossly normal bilaterally General nose exam: Normal external nose present Face and sinus: Yes normal facial exam Mouth: Normal oral and palatal mucosa present Eyes General: appearance normal, both eyes and all related structures Neck Neck: Yes no lymphadenopathy Resp Effort & Inspection: normal respiratory effort Auscultation: clear to auscultation bilaterally Cardio Palpation: normal PMI Rate: regular rate Rhythm: regular rhythm Heart sounds: S1 normal heart sound present and S2 normal heart sound present Back/Spine/Pelvis Cervical Spine: normal cervical lordosis and cervical ROM normal Thoracic/Lumbar Spine: thoracic and lumbar spine normal to inspection and thoraco-lumbar ROM normal Skin General skin exam: no rashes or lesions noted Neuro General: moves all extremities and no focal motor deficits Extrem General: Yes capillary refill normal and Yes no clubbing, cyanosis or edema Psych Appearance: grossly normal Mental Status: mental status grossly normal Speech and movement: Normal speech and movement present Assessment & Plan Assessment & Plan (1) School physical exam: Code(s): Z02.0 - Encounter for examination for admission to educational institution Plan: Physical exam unremarkable. Paperwork completed for patient to begin nurses aide program. TB test required to start program. Paperwork accompanying patient asks for PPD, however I explained to patient that T-spot is currently the modern gold standard for testing latent tuberculosis infection. Patient will go today for labs and is aware she will be notified of results once these are available. All questions were answered and patient verbalizes understanding and agrees to plan. Orders: Orders T Spot TB Today Z02.0 - Encounter for examination for admission to [facility] Medications: Discontinued doxycycline hyclate Discontinued Reason: Patient Completed Course 100 mg PO BID 7 days 14 tabs 0RF furosemide (Lasix) Discontinued Reason: Patient Completed Course 20 mg PO DAILY 5 days 5 tabs 0RF Coding Level of Care Code Est Pt Level 4 (99802) Diagnoses School physical exam Z02.0
--- OUTSIDE RECORDS SUMMARY | 2025-03-09 10:55 | XMS_ITS | Encounter Summary ---
Author Organization [employer] Address [address] [place] [address] Care Team Providers Care Informatics Coordinator Name Role Phone Physician, Pcp Unknown Primary Care Provider Miranda vailable Encounter Details Date Type Department Care Team (Late st Contact Info) Description 09/06/2024 Lab Requisition [facility] - Main Lab [address] [facility] [place] [address] Telma Carey MD [address] [place] [address] Opioid dependence, uncomplicated (CMS/HCC V24, CMS/HCC V28); [...] Fi nal Result Performing Organization Address City/[facility] Co de Phone Number [facility] [address] [place] [address], [place] [phone] * SST tube (09/06/2024 7:30 AM EDT) [facility] Extra Tube Hold for add-ons. 09/06/2024 4:02 PM EDT [facility] Comment:Auto resulted. Blood Venous blood specimen / Unknown 09/06/2024 7:30 AM EDT 09/06/2024 2:52 PM EDT Telma Carey MD LAB BLOOD ORDERABLES Fi nal Result Performing Organization Address [facility] Co de Phone Number [facility] [address] [place] [address], [place] [phone] * Hepatitis C virus quantitative molecular study (09/06/2024 7:30 AM EDT) [facility] HCV Qual Interp Not Detected Not Detected LAB MOLECULAR DIAGNOSTICS METHOD 09/07/2024 10:58 AM EDT [facility] Comment:HCV RNA not detected , unable to report quantitative results. Blood Venous blood specimen / Unknown 09/06/2024 7:30 AM EDT 09/06/2024 2:52 PM EDT Telma Carey MD LAB BLOOD ORDERABLES Fi nal Result Performing Organization Address City/[facility]/ZIP Co de Phone Number [facility] [address] [place] [address], documented in this encounter Visit Diagnoses Diagnosis Opioid dependence, uncomplicated (CMS/[facility] V24, [facility] V28) Encounter for screening for infections with a predominantly sexual mode of transmission documented in this encounter Care Teams Informatics Coordinator Relationship Specialty Start Date End Date Physician, Pcp Unknown PCP - General 08/30/24 documented as of this encounter
--- OUTSIDE RECORDS SUMMARY | 2025-03-09 10:55 | XMS_ITS | Clinical Summary ---
Author Organization [facility] Address [address] [place] [address] Care Team Providers Care Bicycle Subassembler Name Role Phone Unavailable Primary Care Provider [...] (ATARAX) 50 mg tabletIndications:B ipolar 1 disorder Take 1 Tablet by mouth 3 (three) times daily as needed for anxiety for up to 30 days 90 Tablet 5 Active FLUoxetine 60 mg tabIndications:Bipo lar 1 disorder Take 1 Tablet by mouth daily. for 30 days 30 Tablet 5 Active OLANZapine (ZYPREXA) 10 mg disintegrating tabletIndications:B ipolar 1 disorder Take 1 Tablet by mouth nightly at bedtime for 30 days 30 Tablet 5 Active Active Problems Problem Noted Date Diagnosed Date Bipolar 1 disorder 07/21/2024 Overview (07/21/2024): Not currently followed by psych. Hoping to go back to [facility] in a few weeks. Assessment & [...] Cervical Cancer Screening 2010 Pap Smear 2010 Imm-HPV (1 - 3-dose SCDM series) 2016 Alcohol and Drug Screen 06/07/2024 [id number] ( season) 2025 Imm-Influenza (#1) 2025 Hypertension Screening (#1) 07/21/2025 Cervical Ablation/Cold-Knife Conization Discontinued Cervical Cryotherapy Discontinued Colposcopy Discontinued Endometrial Biopsy Discontinued Excision/Leep Discontinued HPV Genotyping Discontinued Vaginal Pap Discontinued Vulvoscopy Discontinued Insurance [facility] Member Subscriber Plan / Payer (Ef fective 2024-Present) Name:Adore Messer Relation to Subscriber:Self Name:Adore Messer Payer ID:[id number] Group ID:Not on file Type:Medicaid Address: [address] [place] [address] [facility] MEDICAID
--- OUTSIDE RECORDS SUMMARY | 2025-03-09 10:56 | XMS_ITS | Clinical Summary ---
Author Organization [address] [facility] Address [address] [place] [address] Phone Care Team Providers Care Wool Mixer Name Role Phone Physician, Pcp Unknown Primary Care Provider Miranda vailable Social History Tobacco Use Types Packs/Day Years [...] Cervical Cancer Screening: P ap Smear 2010 Depression Screening 06/07/2024 Social Influencers of Health Screening 08/30/2024 COVID-19 Vaccine ( - 2023-2 5 season) 2025 Influenza Vaccine (#1) 2025 RSV Immunization Adult Patients (1 - 1-dose 75+ series) 2064 HIV Screening Completed 08/29/2024 Hepatitis C Screening [...] age to complete this topic Meningococcal B Vaccine Aged Out No l onger eligible based on patient's age to complete this topic Pneumococcal Vaccine: Pediatrics (0 to 5 Years) and At-Risk Patients (6 to 49 Years) Aged Out No longer eligible b ased on patient's age to complete this topic RSV Immunization Patients Under 20 months Aged Out No longer eligible b ased on patient's age to complete this topic Varicella Vaccines Aged Out No longer eligible based on patient's age to complete this topic Procedures Procedure Name Priority Date/Time Associated Diagnosis Comments HEPATITIS C VIRUS QUANTITATIVE PCR Routine 09/06/2024 7:30 AM EDT Opioid dependence, uncomplicated (CMS/HCC) Encounter for screening for infections with a predominantly sexual mode of transmission HIV 1, 2 ANTIBODY, P24 ANTIGEN WITH REFLEX TO DIFFERENTIATION Routine 08/29/2024 9:45 AM EDT Opioid dependence, uncomplicated (CMS/HCC) from Last 3 Months or Most Recently Relevant to Health Maintenance Results * Hepatitis C virus quantitative molecular study (09/06/2024 7:30 AM EDT) HCV Qual Interp Not Detected Not Detected LAB MOLECULAR DIAGNOSTICS METHOD 09/07/2024 10:[address] [facility] Comment:HCV RNA not detected , unable to report quantitative results. Blood Venous blood specimen / Unknown 09/06/2024 7:30 AM EDT 09/06/2024 2:52 PM EDT us Telma Carey MD LAB BLOOD ORDERABLES Fi nal Result [facility] [address] [place] [address], * HIV 1,2 antibody, p24 antigen with reflex to differentiation (08/29/2024 9:45 AM EDT) HIV Combo AB/AG Negative Negative LAB CHEMISTRY METHOD 08/29/2024 6:[address] [facility] Blood Venous blood specimen / Unknown 08/29/2024 9:45 AM EDT 08/29/2024 3:[address] [facility] - 08/29/2024 6:05 PM EDT This assay is a 4th generation assay allowing for earlier detection of HIV infection by detecting the presence of the HIV-1 p24 antigen as well as the traditional antibodies to HIV type 1 (including group O) and type 2. Use of a 4th generation assay is the current CDC recommendation for HIV screening. us Telma Carey MD LAB BLOOD ORDERABLES Fi nal Result [facility] [address] [place] [address], from Last 3 Months or Most Recently Relevant to Health Maintenance Insurance [facility] Care Teams Wool Mixer Relationship Specialty Start Date End Date Physician, Pcp Unknown PCP - General 08/30/24
--- OUTSIDE RECORDS SUMMARY | 2025-03-09 10:56 | XMS_ITS | Encounter Summary ---
Author Organization [employer] Address [address] [place] [address] Care Team Providers Care Mailing Specialist Name Role Phone Physician, Pcp Unknown Primary Care Provider Miranda vailable Encounter Details Date Type Department Care Team (Late st Contact Info) Description 08/29/[address] [facility] - Main Lab [address] [facility] [place] [address] Telma Carey MD [address] [place] [address] Opioid dependence, uncomplicated (CMS/HCC V24, CMS/HCC V28) Social History Tobacco Use Types Packs/Day Years [...] unit/L LAB CHEMISTRY METHOD 08/29/2024 7:03 PM [facility] AST (SGOT) 24 10 - 42 unit/L LAB CHEMISTRY METHOD 08/29/2024 7:03 PM [facility] Total Bilirubin 0.4 0.0 - 1.4 mg/dL LAB CHEMISTRY METHOD 08/29/2024 7:03 PM [facility] Platelets 297 K/mcL LAB HEMETOLOGY METHOD 08/29/2024 7:03 PM EDT [facility] Blood Venous blood specimen / Unknown 08/29/2024 9:45 AM EDT 08/29/2024 3:21 PM EDT Telma Carey MD LAB BLOOD ORDERABLES Fi nal Result Performing Organization Address [facility] de Phone Number [facility] [address] [place] [address], [place] [phone] * Hepatitis A antibody IgM (08/29/2024 9:45 AM EDT) Pathologist [facility] Hepatitis A Antibody IgM Negative Negative LAB CHEMISTRY METHOD 08/29/2024 7:20 PM EDT [facility] Blood Venous blood specimen / Unknown 08/29/2024 9:45 AM EDT 08/29/2024 3:21 PM EDT Narrative [facility] - 08/29/2024 7:20 PM EDT Over the counter supplements containing high doses of biotin may interfere with this assay. If interference is suspected, patients shoud be retested after refraining from biotin supplements for 72 hours. us Telma Carey MD LAB BLOOD ORDERABLES Fi nal Result Performing Organization Address City/[facility] Co de Phone Number [facility] [address] [place] [address], * Red tube (08/29/2024 9:45 AM EDT) Extra Tube Hold for add-ons. 08/29/2024 5:01 PM EDT [facility] Comment:Auto resulted. Blood Venous blood specimen / Unknown 08/29/2024 9:45 AM EDT 08/29/2024 3:26 PM EDT us Telma Carey MD LAB BLOOD ORDERABLES Fi nal Result Performing Organization Address [facility]/ZIP Co de Phone Number [facility] [address] [place] [address], * Hepatitis B core antibody, total (08/29/2024 9:45 AM EDT) Pathologist [facility] Hep B Core Total Ab Negative Negative LAB CHEMISTRY METHOD 08/29/2024 6:05 PM EDT [facility] Blood Venous blood specimen / Unknown 08/29/2024 9:45 AM EDT 08/29/2024 3:21 PM EDT Telma Carey MD LAB BLOOD ORDERABLES Fi nal Result Performing Organization Address [facility] Co de Phone Number [facility] [address] [place] [address], * White no additive tube (08/29/2024 9:45 AM EDT) [facility] Extra Tube Hold for add-ons. 08/29/2024 5:01 PM EDT [facility] Comment:Auto resulted. Urine Urine specimen obtained by clean catch procedure / Unknown 08/29/2024 9:45 AM EDT 08/29/2024 3:21 PM EDT Telma Carey MD LAB MICROBIOLOGY - GENE RAL ORDERABLES Final Result Performing Organization Address [facility]/ZIP Co de Phone Number [facility] [address] [place] [address], [place] [phone] * (ABNORMAL) Hepatitis A antibody total with reflex IgM (08/29/2024 9:45 AM EDT) [facility] Hep A Total Ab Positive( A) Negative LAB CHEMISTRY METHOD 08/29/2024 6:04 PM EDT [facility] Blood Venous blood specimen / Unknown 08/29/2024 9:45 AM EDT 08/29/2024 3:21 PM EDT Narrative [facility] - 08/29/2024 6:04 PM EDT Over the counter supplements containing high doses of biotin may interfere with this assay. If interference is suspected, patients shoud be retested after refraining from biotin supplements for 72 hours. Telma Carey MD LAB BLOOD ORDERABLES Fi nal Result Performing Organization Address [facility] de Phone Number [facility] [address] [place] [address], [place] [phone] * (ABNORMAL) Hepatitis C antibody (08/29/2024 9:45 AM EDT) Hepatitis C Antibody Positive (A) Negative LAB CHEMISTRY METHOD 08/29/2024 6:04 PM EDT [facility] Comment:If confirmation of t his positive HCV Ab screening test is needed, please redraw and order HCV Viral Load. Note--> This test may not be added on due to different specimen requirements. Blood Venous blood specimen / Unknown 08/29/2024 9:45 AM EDT 08/29/2024 3:21 PM EDT Telma Carey MD LAB BLOOD ORDERABLES Fi nal Result Performing Organization Address [facility] Co de Phone Number [facility] [address] [place] [address], [place] [phone] * (ABNORMAL) Hepatitis B surface antibody (08/29/2024 9:45 AM EDT) Hepatitis B Surface Ab Positive (A) Negative LAB CHEMISTRY METHOD 08/29/2024 5:26 PM EDT [facility] Hepatitis B Surface Ab Quantitative >1,000.0 mIU/mL LAB CHEMISTRY METHOD 08/29/2024 5:26 PM EDT [facility] Blood Venous blood specimen / Unknown 08/29/2024 9:45 AM EDT 08/29/2024 3:21 PM EDT [facility] - 08/29/2024 5:26 PM EDT >=10 mIU/mL is considered to be consistent with immunity. Telma Carey MD LAB BLOOD ORDERABLES Fi nal Result Performing Organization Address [facility] de Phone Number [facility] [address] [place] [address], * Hepatitis B surface antigen with reflex to confirmation (08/29/2024 9:45 AM EDT) Hepatitis B Surface Ag Negative Negative LAB CHEMISTRY METHOD 08/29/2024 5:36 PM EDT [facility] Blood Venous blood specimen / Unknown 08/29/2024 9:45 AM EDT 08/29/2024 3:21 PM EDT [facility] - 08/29/2024 5:36 PM EDT Over the counter supplements containing high doses of biotin may interfere with this assay. If interference is suspected, patients shoud be retested after refraining from biotin supplements for 72 hours. Telma Carey MD LAB BLOOD ORDERABLES Fi nal Result Performing Organization Address [facility] Co de Phone Number [facility] [address] [place] [address], [place] [phone] * HIV 1,2 antibody, p24 antigen with reflex to differentiation (08/29/2024 9:45 AM EDT) HIV Combo AB/AG Negative Negative LAB CHEMISTRY METHOD 08/29/2024 6:05 PM EDT [facility] Blood Venous blood specimen / Unknown 08/29/2024 9:45 AM EDT 08/29/2024 3:21 PM EDT Narrative [facility] - 08/29/2024 6:05 PM [...] Fi nal Result Performing Organization Address City/[facility]/ZIP Co de Phone Number [facility] [address] [place] [address], [place] [phone] * Treponema pallidum antibody with reflex to RPR and particle agglutination (08/29/2024 9:45 AM EDT) Pathologist [facility] T. Pallidum Antibodies Negative Negative LAB CHEMISTRY METHOD 08/29/2024 8:07 PM EDT [facility] Blood Venous blood specimen / Unknown 08/29/2024 9:45 AM EDT 08/29/2024 3:21 PM EDT Telma Carey MD LAB BLOOD ORDERABLES Fi nal Result Performing Organization Address [facility] Co de Phone Number [facility] [address] [place] [address], [place] [phone] * (ABNORMAL) Comprehensive metabolic panel (08/29/2024 9:45 AM EDT) Sodium 138 133 - 145 mmol/L LAB CHEMISTRY METHOD 08/29/2024 4:22 PM EDT [facility] Potassium 4.2 3.5 - 5.5 mmol/L LAB CHEMISTRY METHOD 08/29/2024 4:22 PM EDT [facility] Chloride 104 96 - 110 mmol/L LAB CHEMISTRY METHOD 08/29/2024 4:22 PM EDT [facility] CO2 24 21 - 32 mmol/L LAB CHEMISTRY METHOD 08/29/2024 4:22 PM [facility] Anion Gap 10 3 - 11 LAB CHEMISTRY METHOD 08/29/2024 4:22 PM [facility] Glucose 117(H) 70 - 100 mg/dL LAB CHEMISTRY METHOD 08/29/2024 4:22 PM [facility] BUN 7 5 - 25 mg/dL LAB CHEMISTRY METHOD 08/29/2024 4:22 PM [facility] Creatinine 0.56 0.50 - 1.10 mg/dL LAB CHEMISTRY METHOD 08/29/2024 4:22 PM [facility] eGFR 122 >=60 mL/min/1. 73m2 LAB CHEMISTRY METHOD 08/29/2024 4:22 PM [facility] Comment:Calculation based on the Chronic Kidney Disease Epidemiology Collaboration (CKD-EPI) equation refit without adjustment for race. BUN/Creatinine Ratio 12.5 LAB CHEMISTRY METHOD 08/29/2024 4:22 PM [facility] Calcium 9.0 8.5 - 10.5 mg/dL LAB CHEMISTRY METHOD 08/29/2024 4:22 PM [facility] AST (SGOT) 24 10 - 42 unit/L LAB CHEMISTRY METHOD 08/29/2024 4:22 PM [facility] ALT (SGPT) 24 10 - 60 unit/L LAB CHEMISTRY METHOD 08/29/2024 4:22 PM [facility] Alkaline Phosphatase 84 42 - 121 unit/L LAB CHEMISTRY METHOD 08/29/2024 4:22 PM [facility] Total Protein 6.8 6.0 - 8.0 g/dL LAB CHEMISTRY METHOD 08/29/2024 4:22 PM [facility] Albumin 3.7 3.2 - 5.0 g/dL LAB CHEMISTRY METHOD 08/29/2024 4:22 PM [facility] Total Bilirubin 0.4 0.0 - 1.4 mg/dL LAB CHEMISTRY METHOD 08/29/2024 4:22 PM EDT [facility] Blood Venous blood specimen / Unknown 08/29/2024 9:45 AM EDT 08/29/2024 3:21 PM EDT us Telma Carey MD LAB BLOOD ORDERABLES Fi nal Result [facility] [address] [place] [address], [place] [phone] * Complete blood count (08/29/2024 9:45 AM EDT) WBC 8.2 4.8 - 10.8 K/mcL LAB HEMETOLOGY METHOD 08/29/2024 3:35 PM EDT [facility] RBC 4.10 3.80 - 4.80 M/mcL LAB HEMETOLOGY METHOD 08/29/2024 3:35 PM EDT [facility] Hemoglobin 11.7 11.5 - 16.0 g/dL LAB HEMETOLOGY METHOD 08/29/2024 3:35 PM EDT [facility] Hematocrit 35.3 35.0 - 47.0 % LAB HEMETOLOGY METHOD 08/29/2024 3:35 PM EDT [facility] MCV 85.3 79.0 - 98.0 FL LAB HEMETOLOGY METHOD 08/29/2024 3:35 PM EDT [facility] MCH 28.3 27.0 - 32.0 pcg LAB HEMETOLOGY METHOD 08/29/2024 3:35 PM EDT [facility] MCHC 33.1 32.0 - 37.0 g/dL LAB HEMETOLOGY METHOD 08/29/2024 3:35 PM EDT [facility] RDW 13.5 11.0 - 15.0 % LAB HEMETOLOGY METHOD 08/29/2024 3:35 PM EDT [facility] Platelets 297 130 - 400 K/mcL LAB HEMETOLOGY METHOD 08/29/2024 3:35 PM EDT [facility] MPV 10.8 7.0 - 11.0 FL LAB HEMETOLOGY METHOD 08/29/2024 3:35 PM EDT [facility] NRBC 0.0 <1.0 % LAB HEMETOLOGY METHOD 08/29/2024 3:35 PM EDT [facility] NRBC Absolute 0.00 <0.10 K/mcL LAB HEMETOLOGY METHOD 08/29/2024 3:35 PM EDT [facility] Blood Venous blood specimen / Unknown 08/29/2024 9:45 AM EDT 08/29/2024 3:21 PM EDT us Telma Carey MD LAB BLOOD ORDERABLES Fi nal Result [facility] [address] [place] [address], documented in this encounter Visit Diagnoses Diagnosis Opioid dependence, uncomplicated (CMS/HCC V24, CMS/HCC V28) documented in this encounter Care Teams Mailing Specialist Relationship Specialty Start Date End Date Physician, Pcp Unknown PCP - General 08/30/24 documented as of this encounter
== END 2025-03-09 10:58 | disposition home or self-care (01) ==
PROVIDERS: PCP Internal Medicine; Visit Provider Nurse Practitioner Family
DX: Z02.0 Encounter for examination for admission to educational institution (principal)

== ENCOUNTER 2025-04-05 09:47 | Outpatient (AMB) | payer OTHER, SELFPAY ==
[2025-04-05 09:48] VITALS: BP 90/54; PULSE 75; TEMP 36.8; O2SAT 97; BMI 32.7
--- NOTE | 2025-04-05 09:48 | MHC.OFFWIV ---
Intake Vital Signs 04/05/25 09:48 Height 5 ft 2 in Intake Visit Reasons: ep rash on right side of buttocks Allergies No Known Allergies Allergy (Verified 03/09/25 10:12) Coding
--- NOTE | 2025-04-05 10:21 | MHC.OFFWIV ---
Intake Vital Signs 04/05/25 09:48 Height 5 ft 2 in Weight 179 lb BMI 32.7 BP 90/54 L Blood Pressure Location Rt brachial Position Sitting Pulse 75 Pulse Source Pulse Oximeter Temp 98.3 F Temp Source Oral Pulse Oximetry (%) 97 Oxygen Delivery Method Room Air Intake Visit Reasons: ep rash on right side of buttocks Intake Note: pt presents with itchy area with trail of dots on right buttock fold. reports sedentary work and become sweat. lives in a senior living house. reports h/o staph Allergies No Known Allergies Allergy (Verified 04/05/25 10:24) Do you need a note to return to daycare/school/sports/work: No HPI HPI Comments History of Present Illness Details 34 y/o Female patient who presents to the walk in clinic with c/o Rash on her right Buttock cheek. She noticed the rash 3 days ago. Describes the rash as very Itchy and red. She does live in a Shelter house and shares Bedroom and Bathrooms. She thinks she might have been bitten by Bugs . Pt has Low Blood pressure associated with Dizziness, fatigue and drowsiness. She is on Methadone for few months now. Denies CP, SOB or Heart Palpitations. [facility] Medical History (Updated 04/05/25 @ 11:13 by Susan Paez NP) Hypotension Rash Review of Systems Const All systems reviewed & are unremarkable except as noted in HPI and below Physical Exam Vital Signs: Last Vital Signs Temp 98.3 F 04/05/25 09:48 Pulse 75 04/05/25 09:48 BP 90/54 L 04/05/25 09:48 Pulse Ox 97 04/05/25 09:48 Oxygen Delivery Method Room Air 04/05/25 09:48 BMI result Body Mass Index 32.7 Const General: no acute distress Nutritional Appearance: overweight Orientation/consciousness: patient oriented x3 Resp Effort & Inspection: normal respiratory effort Auscultation: clear to auscultation bilaterally Cardio Heart sounds: S1 normal heart sound present and S2 normal heart sound present Skin Other: Scattered erythematous papules and wheals, several in linear arrangement over the right buttock. Lesions are non-vesicular, non-tender, and intensely pruritic. Findings are consistent with bed bug rash. Rashes: rashes noted (Right buttock) Neuro General: patient oriented x3, gait normal and moves all extremities Psych Speech and movement: Normal speech and movement present Assessment & Plan Assessment & Plan (1) Rash: Code(s): R21 - Rash and other nonspecific skin eruption Plan: Findings are consistent with bed bug rash. Ordered Topical Steroid cream Avoid scratching to prevent secondary infection. Oral antihistamines for itching. Clean the beddings and clothes in warm water. (2) Hypotension: Code(s): I95.9 - Hypotension, unspecified Qualifiers: Hypotension type: other hypotension type Qualified Code(s): I95.89 - Other hypotension Plan: She currently on methadone - methadone can lower blood pressure and cause hypotension. For some people, this is a severe side effect. Advised to monitor Blood Pressure once a day and keep a Log Hydrate well with water and fluids. Change positions slowly to avoid dizziness. Medications: New triamcinolone acetonide 0.025% 1 appl topical BID 15 grams 0RF R21 - Rash and other nonspecific skin eruption Coding Level of Care Code Est Pt Level 4 (35506) Diagnoses Rash R21 Other specified hypotension I95.89 Hypotension type: other hypotension type Time Spent (min) 20
--- OUTSIDE RECORDS SUMMARY | 2025-04-05 11:30 | XMS_ITS | Encounter Summary ---
Author Organization [employer] Address [address] [place] [address] Care Team Providers Care Transaction Advisory Services Manager Name Role Phone Physician, Pcp Unknown Primary Care Provider Miranda vailable Encounter Details Date Type Department Care Team (Late st Contact Info) Description 08/29/2024 Lab Requisition [facility] - Main Lab [address] [facility] [place] [address] Telma Carey MD [address] [place] [address] Opioid dependence, uncomplicated (CMS/HCC V24, CMS/HCC V28) [...] unit/L LAB CHEMISTRY METHOD 08/29/2024 7:03 PM [facility] AST (SGOT) 24 10 - 42 unit/L LAB CHEMISTRY METHOD 08/29/2024 7:03 PM [facility] Total Bilirubin 0.4 0.0 - 1.4 mg/dL LAB CHEMISTRY METHOD 08/29/2024 7:03 PM [facility] Platelets 297 K/mcL LAB HEMETOLOGY METHOD 08/29/2024 7:03 PM EDT [facility] Blood Venous blood specimen / Unknown 08/29/2024 9:45 AM EDT 08/29/2024 3:21 PM EDT Telma Carey MD LAB BLOOD ORDERABLES Fi nal Result Performing Organization Address [facility] de Phone Number [facility] [address] [place] [address], [place] [phone] * Hepatitis A antibody IgM (08/29/2024 9:45 AM EDT) Pathologist [facility] Hepatitis A Antibody IgM Negative Negative LAB CHEMISTRY METHOD 08/29/2024 7:20 PM EDT [facility] Blood Venous blood specimen / Unknown 08/29/2024 9:45 AM EDT 08/29/2024 3:21 PM EDT Narrative [facility] - 08/29/2024 7:20 PM EDT Over the counter supplements containing high doses of biotin may interfere with this assay. If interference is suspected, patients shoud be retested after refraining from biotin supplements for 72 hours. us Telma Carey MD LAB BLOOD ORDERABLES Fi nal Result Performing Organization Address City/[facility] Co de Phone Number [facility] [address] [place] [address], * Red tube (08/29/2024 9:45 AM EDT) Extra Tube Hold for add-ons. 08/29/2024 5:01 PM EDT [facility] Comment:Auto resulted. Blood Venous blood specimen / Unknown 08/29/2024 9:45 AM EDT 08/29/2024 3:26 PM EDT us Telma Carey MD LAB BLOOD ORDERABLES Fi nal Result Performing Organization Address [facility]/ZIP Co de Phone Number [facility] [address] [place] [address], * Hepatitis B core antibody, total (08/29/2024 9:45 AM EDT) Pathologist [facility] Hep B Core Total Ab Negative Negative LAB CHEMISTRY METHOD 08/29/2024 6:05 PM EDT [facility] Blood Venous blood specimen / Unknown 08/29/2024 9:45 AM EDT 08/29/2024 3:21 PM EDT Telma Carey MD LAB BLOOD ORDERABLES Fi nal Result Performing Organization Address [facility] Co de Phone Number [facility] [address] [place] [address], * White no additive tube (08/29/2024 9:45 AM EDT) [facility] Extra Tube Hold for add-ons. 08/29/2024 5:01 PM EDT [facility] Comment:Auto resulted. Urine Urine specimen obtained by clean catch procedure / Unknown 08/29/2024 9:45 AM EDT 08/29/2024 3:21 PM EDT Telma Carey MD LAB MICROBIOLOGY - GENE RAL ORDERABLES Final Result Performing Organization Address [facility]/ZIP Co de Phone Number [facility] [address] [place] [address], [place] [phone] * (ABNORMAL) Hepatitis A antibody total with reflex IgM (08/29/2024 9:45 AM EDT) [facility] Hep A Total Ab Positive( A) Negative LAB CHEMISTRY METHOD 08/29/2024 6:04 PM EDT [facility] Blood Venous blood specimen / Unknown 08/29/2024 9:45 AM EDT 08/29/2024 3:21 PM EDT Narrative [facility] - 08/29/2024 6:04 PM EDT Over the counter supplements containing high doses of biotin may interfere with this assay. If interference is suspected, patients shoud be retested after refraining from biotin supplements for 72 hours. Telma Carey MD LAB BLOOD ORDERABLES Fi nal Result Performing Organization Address [facility] de Phone Number [facility] [address] [place] [address], [place] [phone] * (ABNORMAL) Hepatitis C antibody (08/29/2024 9:45 AM EDT) Hepatitis C Antibody Positive (A) Negative LAB CHEMISTRY METHOD 08/29/2024 6:04 PM EDT [facility] Comment:If confirmation of t his positive HCV Ab screening test is needed, please redraw and order HCV Viral Load. Note--> This test may not be added on due to different specimen requirements. Blood Venous blood specimen / Unknown 08/29/2024 9:45 AM EDT 08/29/2024 3:21 PM EDT Telma Carey MD LAB BLOOD ORDERABLES Fi nal Result Performing Organization Address [facility] Co de Phone Number [facility] [address] [place] [address], [place] [phone] * (ABNORMAL) Hepatitis B surface antibody (08/29/2024 9:45 AM EDT) Hepatitis B Surface Ab Positive (A) Negative LAB CHEMISTRY METHOD 08/29/2024 5:26 PM EDT [facility] Hepatitis B Surface Ab Quantitative >1,000.0 mIU/mL LAB CHEMISTRY METHOD 08/29/2024 5:26 PM EDT [facility] Blood Venous blood specimen / Unknown 08/29/2024 9:45 AM EDT 08/29/2024 3:21 PM EDT [facility] - 08/29/2024 5:26 PM EDT >=10 mIU/mL is considered to be consistent with immunity. Telma Carey MD LAB BLOOD ORDERABLES Fi nal Result Performing Organization Address [facility] de Phone Number [facility] [address] [place] [address], * Hepatitis B surface antigen with reflex to confirmation (08/29/2024 9:45 AM EDT) Hepatitis B Surface Ag Negative Negative LAB CHEMISTRY METHOD 08/29/2024 5:36 PM EDT [facility] Blood Venous blood specimen / Unknown 08/29/2024 9:45 AM EDT 08/29/2024 3:21 PM EDT [facility] - 08/29/2024 5:36 PM EDT Over the counter supplements containing high doses of biotin may interfere with this assay. If interference is suspected, patients shoud be retested after refraining from biotin supplements for 72 hours. Telma Carey MD LAB BLOOD ORDERABLES Fi nal Result Performing Organization Address [facility] Co de Phone Number [facility] [address] [place] [address], [place] [phone] * HIV 1,2 antibody, p24 antigen with reflex to differentiation (08/29/2024 9:45 AM EDT) HIV Combo AB/AG Negative Negative LAB CHEMISTRY METHOD 08/29/2024 6:05 PM EDT [facility] Blood Venous blood specimen / Unknown 08/29/2024 9:45 AM EDT 08/29/2024 3:21 PM EDT Narrative [facility] - 08/29/2024 6:05 PM EDT [...] ORDERABLES Fi nal Result Performing Organization Address City/[facility]/ZIP Co de Phone Number [facility] [address] [place] [address], [place] [phone] * Treponema pallidum antibody with reflex to RPR and particle agglutination (08/29/2024 9:45 AM EDT) Pathologist [facility] T. Pallidum Antibodies Negative Negative LAB CHEMISTRY METHOD 08/29/2024 8:07 PM EDT [facility] Blood Venous blood specimen / Unknown 08/29/2024 9:45 AM EDT 08/29/2024 3:21 PM EDT Telma Carey MD LAB BLOOD ORDERABLES Fi nal Result Performing Organization Address [facility] Co de Phone Number [facility] [address] [place] [address], [place] [phone] * (ABNORMAL) Comprehensive metabolic panel (08/29/2024 9:45 AM EDT) Sodium 138 133 - 145 mmol/L LAB CHEMISTRY METHOD 08/29/2024 4:22 PM EDT [facility] Potassium 4.2 3.5 - 5.5 mmol/L LAB CHEMISTRY METHOD 08/29/2024 4:22 PM EDT [facility] Chloride 104 96 - 110 mmol/L LAB CHEMISTRY METHOD 08/29/2024 4:22 PM EDT [facility] CO2 24 21 - 32 mmol/L LAB CHEMISTRY METHOD 08/29/2024 4:22 PM [facility] Anion Gap 10 3 - 11 LAB CHEMISTRY METHOD 08/29/2024 4:22 PM [facility] Glucose 117(H) 70 - 100 mg/dL LAB CHEMISTRY METHOD 08/29/2024 4:22 PM [facility] BUN 7 5 - 25 mg/dL LAB CHEMISTRY METHOD 08/29/2024 4:22 PM [facility] Creatinine 0.56 0.50 - 1.10 mg/dL LAB CHEMISTRY METHOD 08/29/2024 4:22 PM [facility] eGFR 122 >=60 mL/min/1. 73m2 LAB CHEMISTRY METHOD 08/29/2024 4:22 PM [facility] Comment:Calculation based on the Chronic Kidney Disease Epidemiology Collaboration (CKD-EPI) equation refit without adjustment for race. BUN/Creatinine Ratio 12.5 LAB CHEMISTRY METHOD 08/29/2024 4:22 PM [facility] Calcium 9.0 8.5 - 10.5 mg/dL LAB CHEMISTRY METHOD 08/29/2024 4:22 PM [facility] AST (SGOT) 24 10 - 42 unit/L LAB CHEMISTRY METHOD 08/29/2024 4:22 PM [facility] ALT (SGPT) 24 10 - 60 unit/L LAB CHEMISTRY METHOD 08/29/2024 4:22 PM [facility] Alkaline Phosphatase 84 42 - 121 unit/L LAB CHEMISTRY METHOD 08/29/2024 4:22 PM [facility] Total Protein 6.8 6.0 - 8.0 g/dL LAB CHEMISTRY METHOD 08/29/2024 4:22 PM [facility] Albumin 3.7 3.2 - 5.0 g/dL LAB CHEMISTRY METHOD 08/29/2024 4:22 PM [facility] Total Bilirubin 0.4 0.0 - 1.4 mg/dL LAB CHEMISTRY METHOD 08/29/2024 4:22 PM EDT [facility] Blood Venous blood specimen / Unknown 08/29/2024 9:45 AM EDT 08/29/2024 3:21 PM EDT us Telma Carey MD LAB BLOOD ORDERABLES Fi nal Result [facility] [address] [place] [address], [place] [phone] * Complete blood count (08/29/2024 9:45 AM EDT) WBC 8.2 4.8 - 10.8 K/mcL LAB HEMETOLOGY METHOD 08/29/2024 3:35 PM EDT [facility] RBC 4.10 3.80 - 4.80 M/mcL LAB HEMETOLOGY METHOD 08/29/2024 3:35 PM EDT [facility] Hemoglobin 11.7 11.5 - 16.0 g/dL LAB HEMETOLOGY METHOD 08/29/2024 3:35 PM EDT [facility] Hematocrit 35.3 35.0 - 47.0 % LAB HEMETOLOGY METHOD 08/29/2024 3:35 PM EDT [facility] MCV 85.3 79.0 - 98.0 FL LAB HEMETOLOGY METHOD 08/29/2024 3:35 PM EDT [facility] MCH 28.3 27.0 - 32.0 pcg LAB HEMETOLOGY METHOD 08/29/2024 3:35 PM EDT [facility] MCHC 33.1 32.0 - 37.0 g/dL LAB HEMETOLOGY METHOD 08/29/2024 3:35 PM EDT [facility] RDW 13.5 11.0 - 15.0 % LAB HEMETOLOGY METHOD 08/29/2024 3:35 PM EDT [facility] Platelets 297 130 - 400 K/mcL LAB HEMETOLOGY METHOD 08/29/2024 3:35 PM EDT [facility] MPV 10.8 7.0 - 11.0 FL LAB HEMETOLOGY METHOD 08/29/2024 3:35 PM EDT [facility] NRBC 0.0 <1.0 % LAB HEMETOLOGY METHOD 08/29/2024 3:35 PM EDT [facility] NRBC Absolute 0.00 <0.10 K/mcL LAB HEMETOLOGY METHOD 08/29/2024 3:35 PM EDT [facility] Blood Venous blood specimen / Unknown 08/29/2024 9:45 AM EDT 08/29/2024 3:21 PM EDT us Telma Carey MD LAB BLOOD ORDERABLES Fi nal Result [facility] [address] [place] [address], documented in this encounter Visit Diagnoses Diagnosis Opioid dependence, uncomplicated (CMS/HCC V24, CMS/HCC V28) documented in this encounter Care Teams Transaction Advisory Services Manager Relationship Specialty Start Date End Date Physician, Pcp Unknown PCP - General 08/30/24 documented as of this encounter
--- OUTSIDE RECORDS SUMMARY | 2025-04-05 11:30 | XMS_ITS | Encounter Summary ---
Author Organization [employer] Address [address] [place] [address] Care Team Providers Care Gun Numberer Name Role Phone Physician, Pcp Unknown Primary Care Provider Miranda vailable Encounter Details Date Type Department Care Team (Late st Contact Info) Description 09/06/2024 Lab Requisition [facility] - Main Lab [address] [facility] [place] [address] eTlma Carey MD [address] [place] [address] Opioid dependence, uncomplicated (CMS/HCC V24, CMS/HCC V28); [...] Hold for add-ons. 09/06/2024 4:02 PM EDT [facility] Comment:Auto resulted. Blood Venous blood specimen / Unknown 09/06/2024 7:30 AM EDT 09/06/2024 2:52 PM EDT Telma Carey MD LAB BLOOD ORDERABLES Fi nal Result Performing Organization Address City/[facility] Co de Phone Number [facility] [address] [place] [address], [place] [phone] * SST tube (09/06/2024 7:30 AM EDT) [facility] Extra Tube Hold for add-ons. 09/06/2024 4:02 PM EDT [facility] Comment:Auto resulted. Blood Venous blood specimen / Unknown 09/06/2024 7:30 AM EDT 09/06/2024 2:52 PM EDT Telma Carey MD LAB BLOOD ORDERABLES Fi nal Result Performing Organization Address [facility] Co de Phone Number [facility] [address] [place] [address], [place] [phone] * Hepatitis C virus quantitative molecular study (09/06/2024 7:30 AM EDT) [facility] HCV Qual Interp Not Detected Not Detected LAB MOLECULAR DIAGNOSTICS METHOD 09/07/2024 10:58 AM EDT [facility] Comment:HCV RNA not detected , unable to report quantitative results. Blood Venous blood specimen / Unknown 09/06/2024 7:30 AM EDT 09/06/2024 2:52 PM EDT Telma Carey MD LAB BLOOD ORDERABLES Fi nal Result Performing Organization Address City/[facility]/ZIP Co de Phone Number [facility] H[facility] LAB [address] [place] [address], documented in this encounter Visit Diagnoses Diagnosis Opioid dependence, uncomplicated (CMS/[facility] V24, [facility] V28) Encounter for screening for infections with a predominantly sexual mode of transmission documented in this encounter Care Teams Gun Numberer Relationship Specialty Start Date End Date Physician, Pcp Unknown PCP - General 08/30/24 documented as of this encounter
--- OUTSIDE RECORDS SUMMARY | 2025-04-05 11:30 | XMS_ITS | Clinical Summary ---
Author Organization [address] [facility] Address [address] [place] [address] Phone Care Team Providers Care Skin Care Instructor Name Role Phone Physician, Pcp Unknown Primary [...] Cervical Cancer Screening: P ap Smear 2010 HPV Vaccines (1 - 3-dose SCD M series) 2016 Depression Screening 06/07/2024 Social Influencers of Health Screening 08/30/2024 COVID-19 Vaccine (1 - 2023-2 5 season) 2025 Influenza Vaccine [...] quantitative molecular study (09/06/2024 7:30 AM EDT) Pathologist [facility] HCV Qual Interp Not Detected Not Detected LAB MOLECULAR DIAGNOSTICS METHOD 09/07/2024 10:58 AM EDT [facility] Comment:HCV RNA not detected , unable to report quantitative results. Blood Venous blood specimen / Unknown 09/06/2024 7:30 AM EDT 09/06/2024 2:52 PM EDT Telma Carey MD LAB BLOOD ORDERABLES Fi nal Result [facility] [address] [place] [address], * HIV 1,2 antibody, p24 antigen with reflex to differentiation (08/29/2024 9:45 AM EDT) HIV Combo AB/AG Negative Negative LAB CHEMISTRY METHOD 08/29/2024 6:05 PM EDT [facility] Blood Venous blood specimen / Unknown 08/29/2024 9:45 AM EDT 08/29/2024 3:21 PM EDT Narrative [facility] - 08/29/2024 6:05 PM EDT [...] LAB BLOOD ORDERABLES Fi nal Result [facility] [address] [place] [address], from Last 3 Months or Most Recently Relevant to Health Maintenance Insurance [facility] Care Teams Skin Care Instructor Relationship Specialty Start Date End Date Physician, Pcp Unknown PCP - General 08/30/24
== END 2025-04-05 11:31 | disposition home or self-care (01) ==
PROVIDERS: PCP Internal Medicine; Visit Provider Nurse Practitioner Family
DX: R21 Rash and other nonspecific skin eruption (principal); I95.89 Other hypotension

== ENCOUNTER → 2025-04-05 09:47 | Outpatient (BNVA) | payer OTHER, SELFPAY | PROVIDERS: PCP Internal Medicine; Visit Provider Nurse Practitioner Family | DX: R21 Rash and other nonspecific skin eruption (principal); I95.89 Other hypotension | CPT/HCPCS: 99212 ==